=== PATIENT | male | born 1965 | race Caucasian/White ===

== ENCOUNTER 2020-02-12 16:01 | Outpatient (CLI) | payer OTHER, SELFPAY ==
--- NOTE | ~2020-02-12 | MR_ITS ---
EXAMINATION: MR lumbar spine wo con EXAM DATE: 02/12/2020 16:55 INDICATION: Low back pain. Gradually worsening. TECHNIQUE: Multi-sequential, multiplanar MR images of the lumbar spine were obtained without contrast . Sagittal T1, T2, T2 fat saturation images. Axial T2 weighted images. There is no prior study for comparison. FINDINGS: Diffusely heterogeneous bone marrow with some superimposed vertebral body hemangiomata. The re is 3 mm retrolisthesis L1 on L2. Moderate to severe loss of the disc heights at T11-T12, T12-L1, L 1-2, moderate at L2-3 and L5-S1. The conus medullaris terminates at the L1/2 level and has normal sig nal intensity and morphology. Paraspinal soft tissue is unremarkable. Level by level evaluation: T11-12: Sagittal sequence only. There is a mild diffuse disc bulge. Tiny superimposed left central ex trusion, inferior migration. Facet arthropathy: None. Neural foraminal stenosis: Mild bilateral. Central canal stenosis: Mild. T12-L1: There is a mild to moderate diffuse disc bulge. Facet arthropathy: None. Neural foraminal stenosis: No stenosis. Central canal stenosis: No stenosis. L1-L2: There is a moderate diffuse disc bulge. Facet arthropathy: Mild. Neural foraminal stenosis: Mild to moderate bilateral. Central canal stenosis: Mild. L2-L3: There is a moderate diffuse disc bulge. Facet arthropathy: Mild to moderate. Neural foraminal stenosis: Moderate left, mild to moderate right. Central canal stenosis: Mild to moderate. L3-L4: There is a mild to moderate diffuse disc bulge. Facet arthropathy: Mild to moderate. Neural foraminal stenosis: Mild to moderate left, mild right. Central canal stenosis: Mild. L4-L5: There is a moderate diffuse disc bulge. Facet arthropathy: Moderate left, mild to moderate. Neural foraminal stenosis: Moderate left, mild to moderate right. Central canal stenosis: Mild to moderate. L5-S1: There is a moderate diffuse disc bulge. Facet arthropathy: Mild. Neural foraminal stenosis: Moderate bilateral. Central canal stenosis: Mild. IMPRESSION: 1. Overall moderate lumbar spondylosis. Reviewed, dictated and finalized at location B.
== END 2020-02-12 16:02 | disposition home or self-care (01) ==
PROVIDERS: PCP Family Medicine; Visit Provider Physician Assistant
DX: M54.9 Dorsalgia, unspecified (principal); M47.816 Spondylosis without myelopathy or radiculopathy, lumbar region
CPT/HCPCS: 72148

== ENCOUNTER 2020-06-24 06:51 | Outpatient (NON) | payer OTHER, SELFPAY ==
[2020-06-25 00:29] LABS: SARS-CoV-2 RNA PCR Positive
== END 2020-06-24 06:52 ==
LOC: ANHCOVIDDT 07:11
PROVIDERS: PCP Family Medicine; Visit Provider Family Medicine
DX: U07.1 COVID-19 (principal)
CPT/HCPCS: 87635; C9803; U0003

== ENCOUNTER 2020-07-06 20:47 | Emergency (ER) | payer OTHER, SELFPAY ==
--- NOTE | ~2020-07-06 | XR_ITS ---
XR abdomen/kub 1V 07/06/2020 22:00 Indication: Left-sided flank pain Procedure: KUB Comparison: CT dated 07/06/2020 Findings: There is a calcification in the left pelvis corresponding to the stone seen on CT examinati on. There are multiple pelvic phleboliths. Bowel gas pattern is unremarkable. Moderate lower thoracic and lumbar spondylosis with levoscoliosis. Lung bases are unremarkable. Impression: 1: Distal left ureteral stone corresponding to stone identified on correlative CT. Reviewed, dictated and finalized at location A. LIFT MULE OPERATOR Impression: 1: Distal left ureteral stone corresponding to stone identified on correlative CT.
--- NOTE | ~2020-07-06 | CT_ITS ---
EXAMINATION: CT abdomen pelvis wo con DATE: 07/06/2020 21:36 INDICATION: Left flank pain TECHNIQUE: Computed tomography (CT) of the abdomen and pelvis was performed without intravenous contr ast. Automated exposure control and iterative reconstruction technique were employed. Exam dose: 452 .06 mGy-cm total exam DLP. COMPARISON: None. FINDINGS: Nonspecific 4 mm left lower lobe nodule (series 4 image 17). Calcified right lower lobe pulmonary granuloma and calcified right mediastinal nodes consistent with old granulomatous disease occasional splenic calcified granulomas are noted as well. Included lower lung zones are clear of infiltrate or consolidation. Normal heart size. No pericardial or pleural effusion. The liver, gallbladder, spleen, pancreas are otherwise unremarkable. No bile duct or pancreatic duct dilatation. Normal morphology of the adrenal glands. 3 cm right renal cyst. 4 mm distal left ureteral calculus with moderate left hydroureteronephrosis. No other urinary tract c alculus is detected. No evidence of abdominal aortic aneurysm. No intraperitoneal or retroperitoneal or pelvic mass lesion or adenopathy or ascites. Small fat-containing inguinal hernias, left larger than right. Mild left and right colonic diverticulosis; no CT evidence of diverticulitis. Normal appendix. No bowel obstruction, bowel wall thickening, pneumatosis or intraperitoneal free air. Extensive degenerative disc disease of the thoracic and lumbar spine, associated mild retrolisthesis at L1-2 and to a lesser extent L2-3. Degenerative change at the facet joints. No suspicious osteolytic or osteoblastic lesions are noted. IMPRESSION: 4 mm left renal calculus with moderate left hydroureteronephrosis 3 cm right renal cyst Diverticulosis of left and right colon; no CT evidence of diverticulitis Reviewed, dictated and finalized at Location A. Reviewed, dictated and finalized at location A. CONSTRUCTION SUPERVISOR
[2020-07-06 20:49] VITALS: BP 135/88; PULSE 88; RESP 18; TEMP 35.8; O2SAT 100
[2020-07-06 21:07] LABS: Basophils Absolute Auto 0.1 K/mm3 (0.0-0.1); Basophils Percent Auto 0.5 % (0.2-1.2); Eosinophils Absolute Auto 0.3 K/mm3 (0-0.3); Hematocrit 40.2 % (42.0-52.0); Hemoglobin 13.6 g/dL (14.0-18.0); Immature Granulocyte Percent A 0.6 % (0-0.5); Lymphocytes Absolute Auto 3.31 K/mm3 (0.9-3.2); Lymphocytes Percent Auto 19.5 % (18.3-44.2); Mean Corpuscular HGB Conc 33.8 g/dl (32-36); Mean Corpuscular Hemoglobin 29.3 pg (26-34); Mean Corpuscular Volume 86.6 fl (80-100); Mean Platelet Volume 10.2 fl (7.4-10.4); Monocytes Absolute Auto 1.3 K/mm3 (0.1-0.6); Monocytes Percent Auto 7.9 % (2.6-8.5); Neutrophils Absolute Auto 11.8 K/mm3 (1.3-6.7); Neutrophils Percent Auto 69.5 % (45.5-73.1); Platelet Count Result 389 k/mm3 (150-375); Red Blood Count 4.64 M/mm3 (4.6-6.20); White Blood Count 16.9 K/mm3 (4.5-10.0)
--- NOTE | 2020-07-06 21:14 | ED.GENADULT ---
HPI - General Adult General Chief complaint: Urogenital-Male Stated complaint: kidney stone Time Seen by Provider: 07/06/20 21:00 Source: RN notes reviewed History of Present Illness HPI narrative: Patient presents to emergency department from home for left flank pain. Patient states symptoms began 3 hours ago. Pain is located left flank does not radiate associated with nausea vomiting states that he does have a history of kidney stones patient states he tried taking a muscle relaxer at home with no relief. He denies any fevers or chills chest pain shortness of breath or any other symptoms states he did test positive for Covid 2 weeks ago Related Data Allergies Allergy/AdvReac Type Severity Reaction Status Date / Time No Known Allergies Allergy Verified 07/06/20 20:52 Review of Systems Review of Systems: Narrative: Gen.: Denies fevers or chills ENT: Denies congestion Respiratory: Denies shortness of breath or cough CV: Denies chest pain or palpitations GI: See HPI denies burning, urgency, frequency or hematuria Musculoskeletal: Denies back pain or muscle pain Neuro: Denies numbness, tingling, weakness or focal weakness Skin: Denies rash Except as documented, all other systems reviewed and negative [facility] Past Medical History Medical History (Updated 07/06/20 @ 22:32 by Trenton Grimm DO) Patient denies significant medical history Family History Family History Other Family history of multiple sclerosis Social History Social History Smoking status: Never smoker Second hand tobacco smoke exposure: No Alcohol intake: current Gender identity (if verbalized by the patient): Male Exam Narrative: Exam Narrative: APPEARANCE: No acute distress, nontoxic, resting in bed EYES: EOMI HEENT: Normocephalic, atraumatic, OMM RESPIRATORY: No respiratory distress Clear to auscultation bilaterally with no rhonchi wheezing or rales. CARDIOVASCULAR: Regular rate and rhythm without murmurs rubs or gallops. ABDOMINAL: Soft, nontender, nondistended, no rebound or guarding MUSCULOSKELETAl: Moves all extremities. No clubbing, cyanosis or edema. NEURO: Awake and alert. Following commands, speech normal, no focal deficits SKIN:: Warm, dry. No rashes lesions or abrasions PSYCHIATRIC: Normal affect/mood, Course Course Emergency Course: Patient states pain is improved at this time Discussed with patient results of workup and diagnosis. Discussed need for follow-up with primary care, proper use of medication, and reasons to return to the emergency department. Patient understands and agrees to current treatment plan Vital Signs Vital signs: Vital Signs Temperature 96.5 F L 07/06/20 20:49 Pulse Rate 88 07/06/20 20:49 Respiratory Rate 18 07/06/20 20:49 Blood Pressure 135/88 07/06/20 20:49 Pulse Oximetry 100 07/06/20 20:49 Temperature 96.5 F L 07/06/20 20:49 Pulse Rate 88 07/06/20 20:49 Respiratory Rate 18 07/06/20 20:49 Blood Pressure 135/88 07/06/20 20:49 Pulse Oximetry 100 07/06/20 20:49 Medical Decision Making Vital Signs Vital Signs: Vital Signs Temperature 96.5 F L 07/06/20 20:49 Pulse Rate 88 07/06/20 20:49 Respiratory Rate 18 07/06/20 20:49 Blood Pressure 135/88 07/06/20 20:49 Pulse Oximetry 100 07/06/20 20:49 Temperature 96.5 F L 07/06/20 20:49 Pulse Rate 88 07/06/20 20:49 Respiratory Rate 18 07/06/20 20:49 Blood Pressure 135/88 07/06/20 20:49 Pulse Oximetry 100 07/06/20 20:49 Lab Data Result diagrams: 07/06/20 21:00 07/06/20 21:00 Labs: Lab Results 07/06/20 07/06/20 07/06/20 Range/Units 21:00 21:00 21:11 WBC 16.9 H (4.5-10.0) K/mm3 RBC 4.64 (4.6-6.20) M/mm3 Hgb 13.6 L (14.0-18.0) g/dL Hct 40.2 L (42.0-52.0) % MCV 86.6 (80-100) fl MCH 29.3 (26-34) pg MCH
[2020-07-06 21:19] LABS: Anion Gap 14 mmol/L (8-16); Blood Urea Nitrogen 20 mg/dL (9-20); Calcium 9.9 mg/dL (8.4-10.2); Carbon Dioxide 26 mmol/L (22-30); Chloride 101 mmol/L (98-107); Estimated CRCL calculation 98 ml/min; Estimated Glomerular Filt Rate > 60; Glucose 177 mg/dL (75-110); Potassium 3.6 mmol/L (3.4-5.0); Sodium 141 mmol/L (137-145)
[2020-07-06] MEDS: SODIUM CHLORIDE 0.9% IV 1,000 ML 999 ML IV CONT (21:19)
[2020-07-06] MEDS: KETOROLAC 30 MG/ML VIAL (*BKC) IV PUSH (21:19)
[2020-07-06] MEDS: ONDANSETRON INJ 4 MG/2 ML VIAL IV PUSH (21:19)
[2020-07-06 21:20] LABS: Add Urine Microscopic? YES; Appearance Urine Clear (Clear); Bilirubin Urine Negative (Negative); Blood Urine 2+ (Negative); Color Urine Yellow (Yellow); Glucose Urine UA Negative (Negative); Ketones Urine Negative (Negative); Leukocyte Esterase Ur Negative LEU/UL (Negative); Mucus Urine Rare /lpf; Nitrate Urine Negative (Negative); Protein Urine Negative (Negative); RBC Urine 0-2 /hpf (0-2); Specific Grav Ur 1.018 (1.001-1.035); Urobilinogen Urine Negative mg/dL (<2.0); WBC Urine 0-3 /hpf
[2020-07-06] MEDS: TAMSULOSIN HCL 0.4 MG CAPSULE PO (21:57)
[2020-07-06] MEDS: HYDROcodone/acetaminophen (*CRX) 5-325 MG TABLET 1 TAB PO (23:21)
[2020-07-06 23:29] VITALS: BP 145/100; PULSE 82; RESP 16; TEMP 36.8; O2SAT 96
== END 2020-07-06 23:32 | disposition home or self-care (01) ==
PROVIDERS: Emergency Provider Emergency Medicine; PCP Family Medicine
DX: N13.2 Hydronephrosis with renal and ureteral calculous obstruction (principal); Z86.19 Personal history of other infectious and parasitic diseases
CPT/HCPCS: 36415; 74018; 74176; 80048; 81001; 85025; 96361; 96374; 96375; 99284; A9270; J1885; J2405; J7030

== ENCOUNTER 2020-07-08 08:45 | Outpatient (CLI) | payer OTHER, SELFPAY ==
--- NOTE | ~2020-07-08 | XR_ITS ---
EXAMINATION: XR abdomen/kub 1V EXAM DATE: 07/08/2020 09:06 INDICATION: Left ureteral stone. TECHNIQUE: Frontal projection of the upper abdomen, frontal projection lower abdomen/pelvis for inter pretation. Comparison is made to prior examination from 07/06/2020. FINDINGS: Previously seen density suspected to be stone in the distal aspect of the left ureter has probably migrated to the ureterovesicular junction. This finding has been indicated, marked on the ex amination for review, clinical correlation. Nonobstructive bowel gas pattern. There is no organomegal y. IMPRESSION: 1. Probable left UVJ 4 mm stone. Reviewed, dictated and finalized at location B. ING SETTER
== END 2020-07-08 08:46 | disposition home or self-care (01) ==
LOC: ANHIMG 08:54
PROVIDERS: PCP Family Medicine; Visit Provider Urology
DX: N20.1 Calculus of ureter (principal)
CPT/HCPCS: 74018

== ENCOUNTER 2020-07-08 11:22 | Day surgery (SDC) | payer OTHER, SELFPAY ==
[2020-07-08] VITALS (7 sets, daily range): BP systolic 87–160; BP diastolic 55–93; PULSE 84–98; RESP 12–20; TEMP 36.4–36.5; O2SAT 95–100; BMI 31.2
--- NOTE | ~2020-07-08 | XR_ITS ---
EXAMINATION: XR fluoroscopy no charge DATE: 07/08/2020 16:57 INDICATION: Left ureteral stone. TECHNIQUE: 4 intraoperative fluoroscopic views of the abdomen and pelvis were obtained. I was not pre sent. Fluoroscopy exposure time was 5 seconds. COMPARISON: Abdomen radiographs 07/08/2020 FINDINGS: Images demonstrate a wire in the left ureter. There is no visible urolithiasis. IMPRESSION: 1. No visible urolithiasis. Reviewed, dictated and finalized at location A. IGRAPH OPERATOR IMPRESSION: 1. No visible urolithiasis.
--- NOTE | 2020-07-08 13:33 | WPDANESEPPF ---
Anes - Initial Pre Proc Eval Procedure: Operation Date: 07/08/20 16:00 Proposed Procedures p Cystoscopy, Left Ureteroscopy with Stone Extraction - Chase Jamison MD Date/Time: 07/08/20 13:33 Surgeon: Chase Jamison MD Pre Op Diagnosis: left ureteral stone Patient Data Age: 55 Gender: M Height: 1.83 m Weight: 104.5 kg Allergies Allergy/AdvReac Type Severity Reaction Status Date / Time No Known Allergies Allergy Verified 07/08/20 14:27 Home Medications Medication Instructions Recorded Confirmed Type metoprolol succinate 25 mg 25 mg PO DAILY #90 tablet 01/15/20 07/08/20 Rx tablet,extended release 24 hr lisinopril 20 1 tablet PO DAILY #90 tablet 03/07/20 07/08/20 Rx mg-hydrochlorothiazide 12.5 mg tablet hydrocodone-acetaminophen 1 tablet PO Q4H PRN #12 tablet 07/06/20 07/08/20 Rx ibuprofen [IBU] 600 mg PO Q6H PRN #20 tablet 07/06/20 07/08/20 Rx ondansetron 4 mg PO Q6H PRN #10 tablet 07/06/20 07/08/20 Rx tamsulosin [Flomax] 0.4 mg PO DAILY #5 cap 07/06/20 07/08/20 Rx geriatric multivitamin-min 1 tablet QAM 07/08/20 07/08/20 History [One-A-Day 50 Plus] Patient hx anesthesia problems: none Family hx anesthesia problems: none PMFSH Past Medical History Medical History (Updated 07/08/20 @ 13:33 by Easton Rosa DO) Hypertension GREGG (obstructive sleep apnea) no CPAP Patient denies significant medical history Renal stones Family History Family History Other Family history of multiple sclerosis Social History Social History Smoking status: Never smoker Second hand tobacco smoke exposure: No Alcohol intake: current Alcohol use details: STATES MAYBE 1-2 DRINKS LAMAR OTEHR WEEK Substance use: never Living arrangements: with family Gender identity (if verbalized by the patient): Male Spiritual care concerns: No Anes - Eval Final PreProcedure Day of Procedure 07/08/20 13:33 Patient weight: obese Heart: regular rate and rhythm Lungs: clear to auscultation and normal air movement Airway: Mallampati scale class III Neurological: alert and oriented Last oral intake: >/= 8 hours ASA classification: III Emergent: no Anesthetic plan: proceed Anesthesia type and monitoring: general LMA and standard monitoring Informed Consent: The patient's anesthetic plan and its attendant risks and benefits were discussed with the patient/family/POA. Questions were solicited and answers provided to the satisfaction of the patient/family/POA.
--- NOTE | 2020-07-08 14:12 | ECG_ITS ---
Measurements Intervals [place] Rate: 95 P: 48 TN: 165 QRS: 57 QRSD: 102 T: 19 QT: 332 QTc: 418 Interpretive Statements SINUS RHYTHM NORMAL ECG Electronically Signed On 07-08-2020 14:28:29 BRIDGE MANAGER by Westley Antonio D.O.
[2020-07-08] MEDS: LACTATED RINGERS 1,000 ML 30 ML IV CONT (14:33)
[2020-07-08] MEDS: fentaNYL CITRATE INJ (*CRX) 100 MCG/2 ML VIAL 25 MCG IV PUSH (15:07)
--- NOTE | 2020-07-08 15:13 | WPDHPUPDATE1 ---
History and Physical Update Update Date/Time: 07/08/20 15:13 History and Physical has been reviewed, including an updated exam of the patient. There are NO changes in the patient's condition. Risks, benefits, and alternatives have been discussed and questions answered. Patient agrees to proceed with procedure.
[2020-07-08] MEDS: ceFAZolin 2 GM/D5W 50 ML 2 GM/50 ML BAG IVPB (16:36)
[2020-07-08] MEDS: LIDOCAINE HCL 2% GEL UROJET 10 ML PKG MUCOUS MEM (16:50)
--- NOTE | 2020-07-08 16:56 | P.OP_ITS ---
Procedure Note - Detailed Date of procedure: 07/08/20 Pre-op diagnosis: left ureteral stone Post-op diagnosis: same Procedure performed: Cystoscopy, left ureteroscopy with stone extraction Description of procedure: The patient was brought to the operative suite where he is prepped and draped in a routine sterile fashion while in the dorsal lithotomy position after the uneventful induction of a general LMA anesthetic. A 19F rigid cystoscope was placed in the bladder. There are no urethral strictures. His prostatic urethra measures, approximately, 1.5cm with no median lobe enlargement. The bladder mucosa was endoscopically normal without hyperemia or neoplasm. There was a single, orthotopic ureteral orifice bilaterally. A 0.035 glidewire was advanced into the renal pelvis under fluoroscopy. The distal ureter was dilated with an 8F/10F ureteral dilator. Ureteroscopy was undertaken with a short, tapered, semi-rigid ureteroscope and the stone was extracted with ease using a 1.9F Ivana disposable stone basket. Due to the e ase of this manipulation I opted not to place a ureteral stent. The patient's bladder was emptied and was taken to the recovery room having tolerated this procedure well. Implants: None Anesthesia: GLMA Surgeon: Chase Jamison MD Estimated blood loss (mL): 0 Drains: No Packing: No Pathology: yes (Left ureteral stone) Complications: No immediate complications Condition: stable Disposition: PACU
[2020-07-08] MEDS: KETOROLAC 30 MG/ML VIAL (*BKC) IV PUSH (16:58)
== END 2020-07-08 18:30 | disposition home or self-care (01) ==
PROVIDERS: PCP Family Medicine; Visit Provider Urology
PROC: (CPT 52352; principal; 2020-07-08 16:00)
DX: N20.1 Calculus of ureter (principal); I10 Essential (primary) hypertension; G47.33 Obstructive sleep apnea (adult) (pediatric); E66.9 Obesity, unspecified; Z68.30 Body mass index [BMI] 30.0-30.9, adult
CPT/HCPCS: 52352; 82365; 88300; 93005; A9270; C1769; J0690; J1885; J2250; J3010; J7120

== ENCOUNTER 2020-07-09 10:37 | Day surgery (SDC) | payer OTHER, SELFPAY ==
[2020-07-09] VITALS (25 sets, daily range): BP systolic 113–169; BP diastolic 83–109; PULSE 68–104; RESP 2–24; TEMP 36.3–37.1; O2SAT 93–100; BMI 32.5
--- NOTE | ~2020-07-09 | XR_ITS ---
EXAMINATION: XR retrograde pyelo w/stent LT DATE: 07/09/2020 17:40 INDICATION: Left ureteral stent placement TECHNIQUE: 37 fluoroscopic spot images of the abdomen and pelvis were obtained during procedure perfo rmed by Dr. Ledbetter. Radiologist was not present for the imaging or procedure. The amount of fluor oscopy time used during this procedure was 0.7 minutes. COMPARISON: CT dated 07/09/2020 FINDINGS: Images demonstrate retrograde contrast injections into the left ureter with moderate left hydroureter onephrosis. There are small bowel lucent filling defects within the left ureter which appear to wynne e in size and morphology suggesting gas bubbles. Final images demonstrate placement of a left interna l ureteral stent with loops formed over the bladder and left renal pelvis. IMPRESSION: 1. Fluoroscopy utilized during placement of a left internal ureteral stent which is in expected posit ion. See procedure note for further detail. Reviewed, dictated and finalized at location H. HANDLER EQUIPMENT OPERATOR IMPRESSION: 1. Fluoroscopy utilized during placement of a left internal ureteral stent whic h is in expected position. See procedure note for further detail.
--- NOTE | ~2020-07-09 | CT_ITS ---
EXAMINATION: CT abdomen pelvis wo con DATE: 07/09/2020 16:18 INDICATION: Left flank pain. Recent ureteral stone extraction. TECHNIQUE: Computed tomography (CT) of the abdomen and pelvis was performed without intravenous contr ast. Automated exposure control and iterative reconstruction technique were employed. The dose-length product was 466.69 mGy-cm. COMPARISON: None FINDINGS: Lung bases are clear. Heart size is normal. No pericardial or pleural effusion. Calcified paraesophag eal lymph nodes and a few splenic calcific calcification consistent with old granulomatous disease. D iffuse hepatic steatosis. Gallbladder, pancreas and bilateral adrenal glands are normal. 2.8 cm right renal cyst. No evident urolithiasis. The stone previously seen at the distalmost left ur eter is no longer visualized. The distalmost left ureter left ureterovesical junction. Slightly thick ened and with slightly increased attenuation relative to the distal right ureter and ureterovesicular junction which could represent residual inflammation or potentially small amount of clot related to the recently passed stone. This likely still partially obstructing with residual moderate left hydron ephrosis. There is increased inflammatory stranding along the left ureter at about the left kidney wh ich could be related to the hydronephrosis although superimposed ascending urinary tract infection ca nnot be excluded. There are few scattered colonic diverticula without adjacent inflammatory change to suggest diverticu litis. Small bowel and appendix are normal. Bladder is normal. Small fat-containing left inguinal her concha. No free intraperitoneal gas or fluid. No pathologically enlarged abdominal or pelvic lymphadenop athy. Mild thoracolumbar levocurvature with severe spondylosis. IMPRESSION: 1. Interval passage of a prior stone near the left ureterovesicular junction. There is persistent mod erate left hydronephrosis with thickening and subtle increased density at the distalmost left ureter/ ureterovesicular junction suggesting at least partial obstruction related to residual inflammation or potentially small amount of clot. Increased stranding about the left kidney also be due to superimpo sed ascending urinary tract infection would correlate with urinalysis. 2. Diffuse hepatic steatosis. Reviewed, dictated and finalized at [facility] H. S ROOM SUPERVISOR IMPRESSION: 1. Interval passage of a prior stone near the left ureterovesicular junction. T here is persistent moderate left hydronephrosis with thickening and subtle incr eased density at the distalmost left ureter/ureterovesicular junction suggestin g at least partial obstruction related to residual inflammation or potentially small amount of clot. Increased stranding about the left kidney also be due to superimposed ascending urinary tract infection would correlate with urinalysis. 2. Diffuse hepatic steatosis.
[2020-07-09 10:59] LABS: Basophils Percent Auto 0.2 % (0.2-1.2); Eosinophils Absolute Auto 0.1 K/mm3 (0-0.3); Eosinophils Percent Auto 0.4 % (0-4.4); Hematocrit 36.4 % (42.0-52.0); Hemoglobin 12.4 g/dL (14.0-18.0); Immature Granulocyte Absolute 0.07 K/mm3 (0.00-0.031); Immature Granulocyte Percent A 0.4 % (0-0.5); Lymphocytes Absolute Auto 1.14 K/mm3 (0.9-3.2); Lymphocytes Percent Auto 7.1 % (18.3-44.2); Mean Corpuscular HGB Conc 34.1 g/dl (32-36); Mean Corpuscular Hemoglobin 29.6 pg (26-34); Mean Corpuscular Volume 86.9 fl (80-100); Monocytes Absolute Auto 1.4 K/mm3 (0.1-0.6); Monocytes Percent Auto 8.8 % (2.6-8.5); Neutrophils Absolute Auto 13.4 K/mm3 (1.3-6.7); Neutrophils Percent Auto 83.1 % (45.5-73.1); Platelet Count Result 287 k/mm3 (150-375); Red Blood Count 4.19 M/mm3 (4.6-6.20); Red Cell Distribution Width 14.2 % (11.5-14.5); White Blood Count 16.1 K/mm3 (4.5-10.0)
[2020-07-09 11:12] LABS: Potassium 3.5 mmol/L (3.4-5.0)
[2020-07-09 11:16] LABS: Alanine Aminotransferase 27 U/L (4-50); Albumin Level 4.1 g/dL (3.5-5.1); Alkaline Phosphatase 84 U/L (38-126); Anion Gap 11 mmol/L (8-16); Aspartate Amino Transferase 37 U/L (17-59); Bilirubin,Total 0.5 mg/dL (0.2-1.3); Blood Urea Nitrogen 22 mg/dL (9-20); Calcium 9.2 mg/dL (8.4-10.2); Carbon Dioxide 27 mmol/L (22-30); Chloride 102 mmol/L (98-107); Estimated CRCL calculation 54 ml/min; Estimated Glomerular Filt Rate 42; Glucose 128 mg/dL (75-110); Lipase 23 U/L (23-300); Sodium 140 mmol/L (137-145)
--- NOTE | 2020-07-09 11:27 | ED.ABDPAIN ---
HPI - Abdominal Pain General Chief Complaint: Abdominal Pain <ALINA Granados Last Filed: 07/09/20 16:57> Stated Complaint: Post surgical pain - kidney stone <ALINA Granados Last Filed: 07/09/20 16:57> Time Seen by Provider: 07/09/20 10:58 <ALINA Granados Last Filed: 07/09/20 16:57> Source: patient <ALINA Granados Last Filed: 07/09/20 16:57> Mode of arrival: ambulatory <ALINA Granados Last Filed: 07/09/20 16:57> Limitations: no limitations <ALINA Granados Last Filed: 07/09/20 16:57> History of Present Illness HPI narrative: This is a 55-year-old male that presents to the emergency department for worsening left flank pain since last night. Reports the pain is sharp in nature and constant. Reports he was diagnosed with a ureteral stone on Tuesday. Reports he went to see Dr. Jamison yesterday and had a cystoscopy with stone extraction. Reports his pain was controlled initially, but then last night his pain started to worsen again. Last night he noted bright red blood in his urine with some blood clots. Today he still notes some pink in his urine. Initially was having difficulty urinating, but now is able to urinate with mild discomfort. He has been taking ibuprofen for pain with little relief. He did take a Minerva this morning which helped some. Denies fever, nausea, or vomiting. <ALINA Granados Last Filed: 07/09/20 16:57> Related Data Home Medications: Home Medications Medication Instructions Recorded Confirmed geriatric multivitamin-min 1 tablet QAM 07/08/20 07/08/20 <ALINA Granados Last Filed: 07/09/20 16:57> Allergies/Adverse Reactions: Allergies Allergy/AdvReac Type Severity Reaction Status Date / Time No Known Allergies Allergy Verified 07/08/20 14:27 <ALINA Granados Last Filed: 07/09/20 16:57> Review of Systems Review of Systems: Narrative: CONSTITUTIONAL: Denies fever GASTROINTESTINAL: Reports abdominal pain. Denies nausea, vomiting GENITOURINARY: Reports dysuria and hematuria. MUSCULOSKELETAL: Reports flank pain <ALINA Granados Last Filed: 07/09/20 16:57> All systems reviewed & are unremarkable except as noted in HPI and below <Linda Ayon PA-C - Last Filed: 07/09/20 16:57> [facility] Past Medical History Medical History: Medical History Hypertension Obesity GREGG (obstructive sleep apnea) no CPAP Patient denies significant medical history Renal stones <ALINA Granados Last Filed: 07/09/20 16:57> Family History Family History: Family History Other Family history of multiple sclerosis <ALINA Granados Last Filed: 07/09/20 16:57> Social History Social History: Social History Smoking status: Never smoker Second hand tobacco smoke exposure: No Alcohol intake: current Substance use: never Gender identity (if verbalized by the patient): Male Spiritual care concerns: No <ALINA Granados Last Filed: 07/09/20 16:57> Exam Narrative: Exam Narrative: GENERAL: Well-appearing, well-nourished, and in no acute distress. HEAD: Normocephalic, atraumatic. EYES: EOMI. CHEST: Clear to auscultation. No respiratory distress. No wheezes rales or rhonchi HEART: Regular rate and rhythm. No murmur heard. Normal peripheral pulses. ABDOMEN: Soft, nondistended, normal active bowel sounds. Mild tenderness to palpation throughout the left side of the abdomen, without guarding. No CVA tenderness EXTREMITIES: Normal range of motion. No edema. SKIN: Warm, dry, no rash. NEURO: No focal deficits. Alert and oriented x3. PSYCH: Normal mood and affect <ALINA Granados Last Filed: 11/25/20 16:57> Course MEDICAL OFFICE COORDINATOR/PA Physician Supervision Patient
[2020-07-09] MEDS: ONDANSETRON INJ 4 MG/2 ML VIAL IV PUSH (11:28)
[2020-07-09] MEDS: SODIUM CHLORIDE 0.9% IV 1,000 ML 999 ML IV CONT (11:28)
[2020-07-09] MEDS: MORPHINE SULFATE (*CRX) 4 MG/ML INJ IV PUSH ×2 (11:28→16:10)
[2020-07-09 11:35] LABS: Lactic Acid Reflex 0.7 mmol/L (0.7-2.1)
[2020-07-09 13:26] LABS: Add Urine Microscopic? YES; Appearance Urine Clear (Clear); Bilirubin Urine Negative (Negative); Blood Urine 3+ (Negative); Color Urine Yellow (Yellow); Glucose Urine UA Negative (Negative); Ketones Urine 1+ mg/dL (Negative); Leukocyte Esterase Ur Negative LEU/UL (Negative); Mucus Urine Rare /lpf; Nitrate Urine Negative (Negative); Protein Urine 1+ mg/dL (Negative); RBC Urine >75 /hpf (0-2); Specific Grav Ur 1.018 (1.001-1.035); Squamous Epithelial Cell Urine Rare /hpf (Few); Urobilinogen Urine Negative mg/dL (<2.0); WBC Urine 16-20 /hpf
--- NOTE | 2020-07-09 16:29 | WPDANESEPPF ---
Anes - Initial Pre Proc Eval Procedure: Operation Date: 07/09/20 18:00 Proposed Procedures p Cystoscopy, Left Stent Placement - Fan Ledbetter MD Date/Time: 07/09/20 16:29 Pre Op Diagnosis: Post surgical pain - kidney stone Patient Data Age: 55 Gender: M Height: 1.83 m Weight: 104 kg Last Vital Signs Temp 37.1 C 07/09/20 10:49 Pulse 95 07/09/20 11:22 Resp 12 07/09/20 11:22 BP 163/102 H 07/09/20 11:22 Pulse Ox 93 07/09/20 11:22 Allergies Allergy/AdvReac Type Severity Reaction Status Date / Time No Known Allergies Allergy Verified 07/08/20 14:27 Home Medications Medication Instructions Recorded Confirmed Type metoprolol succinate 25 mg 25 mg PO DAILY #90 tablet 01/15/20 07/08/20 Rx tablet,extended release 24 hr lisinopril 20 1 tablet PO DAILY #90 tablet 03/07/20 07/08/20 Rx mg-hydrochlorothiazide 12.5 mg tablet hydrocodone-acetaminophen 1 tablet PO Q4H PRN #12 tablet 07/06/20 07/08/20 Rx ibuprofen [IBU] 600 mg PO Q6H PRN #20 tablet 07/06/20 07/08/20 Rx ondansetron 4 mg PO Q6H PRN #10 tablet 07/06/20 07/08/20 Rx tamsulosin [Flomax] 0.4 mg PO DAILY #5 cap 07/06/20 07/08/20 Rx geriatric multivitamin-min 1 tablet QAM 07/08/20 07/08/20 History Laboratory Tests 07/09/20 07/09/20 07/09/20 10:53 10:53 10:53 WBC 16.1 K/mm3 H K/mm3 (4.5-10.0) RBC 4.19 M/mm3 L M/mm3 (4.6-6.20) Hgb 12.4 g/dL L g/dL (14.0-18.0) Hct 36.4 % L % (42.0-52.0) MCV 86.9 fl fl (80-100) MCH 29.6 pg pg (26-34) MCHC 34.1 g/dl g/dl (32-36) RDW 14.2 % % (11.5-14.5) Plt Count 287 k/mm3 k/mm3 (150-375) MPV 10.0 fl fl (7.4-10.4) Immature Gran % (Auto) 0.4 % % (0-0.5) Neut % (Auto) 83.1 % H % (45.5-73.1) Lymph % (Auto) 7.1 % L % (18.3-44.2) [place] % (Auto) 8.8 % H % (2.6-8.5) Eos % (Auto) 0.4 % % (0-4.4) Baso % (Auto) 0.2 % % (0.2-1.2) Lymph # (Auto) 1.14 K/mm3 K/mm3 (0.9-3.2) [place] # (Auto) 1.4 K/mm3 H K/mm3 (0.1-0.6) Eos # (Auto) 0.1 K/mm3 K/mm3 (0-0.3) Baso # (Auto) 0.0 K/mm3 K/mm3 (0.0-0.1) Abs Immat Gran (auto) 0.07 K/mm3 H K/mm3 (0.00-0.031) Absolute Neuts (auto) 13.4 K/mm3 H K/mm3 (1.3-6.7) Absolute Nucleated RBC 0.0 K/mm3 K/mm3 (0.0-0.012) Nucleated RBC % 0.0 % % (0.0-0.2) Sodium 140 mmol/L mmol/L (137-145) Potassium 3.5 mmol/L mmol/L (3.4-5.0) Chloride 102 mmol/L mmol/L (98-107) Carbon Dioxide 27 mmol/L mmol/L (22-30) Anion Gap 11 mmol/L mmol/L (8-16) BUN 22 mg/dL H mg/dL (9-20) Creatinine 1.70 mg/dL H mg/dL (0.7-1.3) Estim Creat Clear Calc 54 ml/min ml/min Estimated GFR 42 L (59 - ) Glucose 128 mg/dL H mg/dL (75-110) Lactic Acid Calcium 9.2 mg/dL mg/dL (8.4-10.2) Total Bilirubin 0.5 mg/dL mg/dL (0.2-1.3) AST 37 U/L U/L (17-59) ALT 27 U/L U/L (4-50) Alkaline Phosphatase 84 U/L U/L (38-126) C-Reactive Protein 15.0 mg/dL H mg/dL (<1.0) Total Protein 8.0 g/dL g/dL (6.3-8.2) Albumin 4.1 g/dL g/dL (3.5-5.1) Lipase 23 U/L U/L (23-300) Urine Color Urine Appearance Urine pH Ur Specific [place] Urine Protein Urine Glucose (UA) Urine Ketones Ur Blood (Man) Urine Nitrate Urine Bilirubin Urine Urobilinogen Leukocyte Esterase Rfl Urine RBC Urine WBC Ur Squamous Epith Cells Urine Mucus 07/09/20 07/09/20 11:20 12:48 WBC RBC Hgb Hct MCV MCH MCHC
[2020-07-09] MEDS: SODIUM CHLORIDE 0.9% IV 1,000 ML 150 ML IV CONT (16:30)
--- NOTE | 2020-07-09 16:45 | WPDURCON ---
Assessment and Plan Assessment and plan (1) Hydronephrosis, left: Code(s): N13.30 - Unspecified hydronephrosis Status: Acute Assessment and Plan: No residual obstructive stone present, however a small clot in the distal left ureter and moderate hydronephrosis from edema in the distal ureter is present. Keep NPO. Obtain Consent Go to the OR tonight for: Cystoscopy, left ureteroscsopy with stent placement, left retrograde pyelogram. (2) Left flank pain: Code(s): R10.9 - Unspecified abdominal pain Status: Acute (3) KRISTIN (acute kidney injury): Code(s): N17.9 - Acute kidney failure, unspecified Status: Acute Assessment and Plan: Likely in response to surgery yesterday and hydronephrosis, will likely resolve once stent is placed. Urology Consult Note HPI Date Seen: 07/09/20 Primary Care Provider: You Last MD Consult Narrative Narrative: Charles Mccabe is a 55 year old male who presents to the ER with new onset of left flank pain last night following a Cystoscopy, left ureteroscopy with stone extraction, left retrograde pyelogram yesterday with Dr. Jamison. He also developed nausea and vomiting. He denies gross hematuria, dysuria, fever or chills. His WBC is elevated at 16.1 and creatinine is 1.[address] scan shows: Interval passage of a prior stone near the left ureterovesicular junction. There is persistent moderate left hydronephrosis with thickening and subtle increased density at the distalmost left ureter/ureterovesicular junction suggesting at least partial obstruction related to residual inflammation or potentially small amount of clot. Increased stranding about the left kidney also be due to superimposed ascending urinary tract infection would correlate with urinalysis. Review of Systems Cardiovascular: Cardiovascular: Denies chest pain Respiratory: Respiratory: Reports no additional respiratory complaints Gastrointestinal: Gastrointestinal: Reports abdominal pain, Reports nausea and Reports vomiting Genitourinary: Genitourinary: Denies hematuria, Denies dysuria, Reports flank pain and Denies urinary frequency PMF Past Medical History Medical History Hypertension Obesity GREGG (obstructive sleep apnea) no CPAP Patient denies significant medical history Renal stones Family History Family History Other Family history of multiple sclerosis Social History Social History Smoking status: Never smoker Second hand tobacco smoke exposure: No Alcohol intake: current Substance use: never Gender identity (if verbalized by the patient): Male Spiritual care concerns: No Meds Home Medications and Allergies Home Medications Medication Instructions Recorded Confirmed Type metoprolol succinate 25 mg 25 mg PO DAILY #90 tablet 01/15/20 07/08/20 Rx tablet,extended release 24 hr lisinopril 20 1 tablet PO DAILY #90 tablet 03/07/20 07/08/20 Rx mg-hydrochlorothiazide 12.5 mg tablet hydrocodone-acetaminophen 1 tablet PO Q4H PRN #12 tablet 07/06/20 07/08/20 Rx ibuprofen [IBU] 600 mg PO Q6H PRN #20 tablet 07/06/20 07/08/20 Rx ondansetron 4 mg PO Q6H PRN #10 tablet 07/06/20 07/08/20 Rx tamsulosin [Flomax] 0.4 mg PO DAILY #5 cap 07/06/20 07/08/20 Rx geriatric multivitamin-min 1 tablet QAM 07/08/20 07/08/20 History Allergies Allergy/AdvReac Type Severity Reaction Status Date / Time No Known Allergies Allergy Verified 07/08/20 14:27 Vital Signs Vital Signs - 24 hr 07/09/20 10:49 07/09/20 11:22 07/09/20 13:44 Temperature 98.8 F Pulse Rate 88 95 84 Respiratory Rate 21 H 12 12 Blood Pressure 163/97 H 163/102 H Pulse Oximetry 97 93 98 07/09/20 13:45 07/09/20 13:46 07/09/20 14:00 Temperature Pulse Rate 76 85 98 Respiratory Rate 11 L 8 L 13 Bloo
--- NOTE | 2020-07-09 17:03 | WPDHPUPDATE1 ---
History and Physical Update Update Date/Time: 07/09/20 17:03 History and Physical has been reviewed, including an updated exam of the patient. There are NO changes in the patient's condition. Risks, benefits, and alternatives have been discussed and questions answered. Patient agrees to proceed with procedure.
[2020-07-09] MEDS: LIDOCAINE HCL 2% GEL UROJET 10 ML PKG MUCOUS MEM (17:10)
--- NOTE | 2020-07-09 17:34 | SUR.OPER ---
EBL:5cc
--- NOTE | 2020-07-09 17:36 | SUR.PREOP ---
Dr Arreola aware of last dose of metoprolol no new orders, patient arrived with NS infusing per anesthesia ok to go to OR
[2020-07-09] MEDS: LACTATED RINGERS 1,000 ML 30 ML IV CONT (17:41)
--- NOTE | 2020-07-09 17:41 | PM.PROC ---
Procedure Note - Detailed Date of procedure: 07/09/20 Pre-op diagnosis: Post surgical pain - kidney stone Procedure performed: Left hydronephrosis due to ureteral edema Description of procedure: Informed consent was obtained. Patient taken the operating room. He is given preoperative IV antibiotics in the emergency department. Sutures anesthesia he was placed in the dorsal lithotomy position. A 22 F cystoscope was advanced there was some constriction at the membranous urethra therefore a 19 F scope was inserted easily. Inspection of the bladder revealed blood and edema of the left ureterovesical junction, otherwise normal bladder. We then advanced a wire and performed a retrograde pyelogram that showed moderate to severe left hydronephrosis. We then removed the scope and over the wire easily advanced a 22 F scope. We then placed a 6 F variable length stent with a curl in renal pelvis and curl in the bladder. The bladder was emptied. Lidocaine instilled the patient. Says he was awakened and taken to the recovery stable condition. Anesthesia: GLMA Surgeon: Fan Ledbetter MD Drains: No Packing: No Pathology: none sent Complications: No immediate complications Condition: stable Disposition: PACU
[2020-07-09] MEDS: oxyCODONE HCL (*CRX) 5 MG TAB IR PO (18:52)
== END 2020-07-09 18:55 | disposition home or self-care (01) ==
LOC: ANHED 16:46 → ANHSURGERY 16:51
PROVIDERS: Emergency Medicine; Physician Assistant; Emergency Provider Emergency Medicine; PCP Family Medicine; Visit Provider Urology
PROC: (CPT 52352; principal; 2020-07-09 18:00)
DX: N13.30 Unspecified hydronephrosis (principal); Z87.442 Personal history of urinary calculi; I10 Essential (primary) hypertension; G47.33 Obstructive sleep apnea (adult) (pediatric); E66.9 Obesity, unspecified; Z68.32 Body mass index [BMI] 32.0-32.9, adult
CPT/HCPCS: 52332; 36415; 74176; 74420; 80053; 81001; 83605; 83690; 85025; 86140; 87086; 96365; 96375; 96376; 99285; A9270; C1758; C1769; C1887; C2617; J0131; J0696; J2250; J2270; J2405; J3010; J7030; J7120; Q9966

== ENCOUNTER 2020-07-14 11:57 | Outpatient (CLI) | payer OTHER, SELFPAY ==
--- NOTE | ~2020-07-14 | XR_ITS ---
XR abdomen/kub 1V 07/14/2020 12:10 Indication: Replacement of left ureteral stent Procedure: KUB Comparison: 07/08/2020 Findings: Bowel gas pattern is nonobstructive. Left internal ureteral stent in expected position. The re are pelvic phleboliths. Lung bases unremarkable. No acute osseous abnormality. Impression: 1: No acute abdominal abnormality. Reviewed, dictated and finalized at location B. ING CREW FOREMAN Impression: 1: No acute abdominal abnormality.
== END 2020-07-14 11:58 | disposition home or self-care (01) ==
LOC: ANHIMG 12:00
PROVIDERS: PCP Family Medicine; Visit Provider Urology
DX: N20.1 Calculus of ureter (principal)
CPT/HCPCS: 74018

== ENCOUNTER → 2021-07-23 13:08 | Outpatient (CLI) | payer OTHER, SELFPAY ==
--- NOTE | ~2021-07-23 | XR_ITS ---
EXAMINATION: XR hand BI arthritis min 3V DATE: 07/23/2021 13:44 INDICATION: Bilateral hand pain TECHNIQUE: Posteroanterior, lateral, and oblique views of the left and of the right hands as well as a ballcatchers view of both hands were obtained. COMPARISON: None. FINDINGS: Right hand: There is advanced osteoarthritis of the first carpometacarpal joint. Mild osteoarthritis is present in the triscaphe joint and multiple interphalangeal joints. There is no fracture. Bone ali gnment is normal. The soft tissues are unremarkable. Left hand: There is advanced osteoarthritis of the first carpometacarpal joint. Mild osteoarthritis i s present in the triscaphe joint and multiple interphalangeal joints. There is no fracture. Bone alig nment is normal. The soft tissues are unremarkable. IMPRESSION: 1. Bilateral osteoarthritis, worst at the first metacarpophalangeal joints. Reviewed, dictated and finalized at location F. NDMAN/LINEMAN
== END ==
PROVIDERS: PCP Family Medicine; Visit Provider Physician Assistant
DX: M79.643 Pain in unspecified hand (principal); M19.042 Primary osteoarthritis, left hand; M19.041 Primary osteoarthritis, right hand
CPT/HCPCS: 73130

== ENCOUNTER 2021-08-04 10:12 | Outpatient (CLI) | payer OTHER, SELFPAY ==
--- NOTE | 2021-08-04 11:00 | NEURO_ITS ---
Impression: # Complains of whole left hand numbness when driving. # Left Carpal Tunnel Syndrome. # No ulnar neuropathy. # Normal needle/EMG exam. # Patient does have ulnar to median cross innervation. Nerve Conduction Studies Anti Sensory Summary Table Stim Site NR Peak (ms) P-T Amp (?V) Site1 Site2 Delta-P (ms) Dist (cm) Giovanny (m/s) Left Median Anti Sensory (2-3nd Digit) Wrist 3.9 26.9 Wrist 2-3nd Digit 3.9 14.0 36 Wrist 4.1 23.8 Wrist 2-3nd Digit 3.9 14.0 36 Right Median Anti Sensory (2-3nd Digit) Wrist 3.7 21.8 Wrist 2-3nd Digit 3.7 14.0 38 Wrist 3.9 28.2 Wrist 2-3nd Digit 3.7 14.0 38 Left Radial Anti Sensory (Base 1st Digit) Wrist 2.5 14.3 Wrist Base 1st Digit 2.5 0.0 Right Radial Anti Sensory (Base 1st Digit) Wrist 2.6 4.7 Wrist Base 1st Digit 2.6 0.0 Left Ulnar Anti Sensory (5th Digit) Wrist 2.9 22.5 Wrist 5th Digit 2.9 14.0 48 Right Ulnar Anti Sensory (5th Digit) Wrist 2.8 16.3 Wrist 5th Digit 2.8 14.0 50 Motor Summary Table Stim Site NR Onset (ms) O-P Amp (mV) Site1 Site2 Delta-0 (ms) Dist (cm) Giovanny (m/s) Left Median Motor (Abd Poll Brev) Wrist 4.2 0.5 Elbow Wrist 4.9 29.0 59 Elbow 9.1 0.7 Right Median Motor (Abd Poll Brev) Wrist 3.5 0.6 Elbow Wrist 4.9 29.0 59 Elbow 9.1 0.7 Left Ulnar Motor (Abd Dig Minimi) Wrist 2.7 6.1 A Elbow Wrist 5.2 31.0 60 A Elbow 7.9 4.7 Right Ulnar Motor (Abd Dig Minimi) Wrist 2.8 5.9 A Elbow Wrist 5.1 29.0 57 A Elbow 7.9 4.7 F Wave Studies NR F-Lat (ms) L-R F-Lat (ms) Left Median (Mrkrs) (Abd Poll Brev) 28.27 1.61 Right Median (Mrkrs) (Abd Poll Brev) 29.89 1.61 Left Ulnar (Mrkrs) (Abd Dig Min) 29.38 0.46 Right Ulnar (Mrkrs) (Abd Dig Min) 29.83 0.46 EMG Side Muscle Nerve Root Ins Act Fibs Amp Dur Recrt Comment Right 1stDorInt Ulnar C8-T1 Nml Nml Nml Nml Nml Right Ext Indicis Radial (Post Int) C7-8 Nml Nml Nml Nml Nml Right Ext Digitorum Radial (Post Int) C7-8 Nml Nml Nml Nml Nml Right BrachioRad Radial C5-6 Nml Nml Nml Nml Nml Right PronatorTeres Median C6-7 Nml Nml Nml Nml Nml Right Abd Poll Brev Median C8-T1 Nml Nml Nml Nml Nml Left 1stDorInt Ulnar C8-T1 Nml Nml Nml Nml Nml Left Ext Indicis Radial (Post Int) C7-8 Nml Nml Nml Nml Nml Left Ext Digitorum Radial (Post Int) C7-8 Nml Nml Nml Nml Nml Left BrachioRad Radial C5-6 Nml Nml Nml Nml Nml Left PronatorTeres Median C6-7 Nml Nml Nml Nml Nml Left Abd Poll Brev Median C8-T1 Nml Nml Nml Nml Nml MTDD
== END 2021-08-04 10:13 | disposition home or self-care (01) ==
LOC: ANHNEURO 10:16
PROVIDERS: PCP Family Medicine; Visit Provider Physician Assistant
DX: M79.643 Pain in unspecified hand (principal); G56.02 Carpal tunnel syndrome, left upper limb
CPT/HCPCS: 95886; 95911

== ENCOUNTER 2023-10-10 14:30 | Outpatient (CLI) | payer OTHER, SELFPAY ==
[2023-10-10 16:23] LABS: Basophils Absolute Auto 0.1 K/mm3 (0.0-0.1); Basophils Percent Auto 0.6 % (0.2-1.2); Eosinophils Absolute Auto 0.3 K/mm3 (0-0.3); Eosinophils Percent Auto 3.1 % (0-4.4); Hematocrit 39.6 % (42.0-52.0); Hemoglobin 12.7 g/dL (14.0-18.0); Immature Granulocyte Absolute 0.03 K/mm3 (0.00-0.031); Immature Granulocyte Percent A 0.3 % (0-0.5); Lymphocytes Absolute Auto 2.91 K/mm3 (0.9-3.2); Mean Corpuscular HGB Conc 32.1 g/dl (32-36); Mean Corpuscular Hemoglobin 28.2 pg (26-34); Mean Corpuscular Volume 87.8 fl (80-100); Mean Platelet Volume 10.2 fl (7.4-10.4); Monocytes Absolute Auto 0.8 K/mm3 (0.1-0.6); Monocytes Percent Auto 7.4 % (2.6-8.5); Neutrophils Absolute Auto 6.6 K/mm3 (1.3-6.7); Neutrophils Percent Auto 61.6 % (45.5-73.1); Platelet Count Result 370 k/mm3 (150-375); Red Blood Count 4.51 M/mm3 (4.6-6.20); Red Cell Distribution Width 14.9 % (11.5-14.5); White Blood Count 10.8 K/mm3 (4.5-10.0)
[2023-10-10 17:21] LABS: Alanine Aminotransferase 41 U/L (6-50); Albumin Level 4.5 g/dL (3.5-5.1); Alkaline Phosphatase 101 U/L (38-126); Anion Gap 10 mmol/L (8-16); Aspartate Amino Transferase 58 U/L (17-59); Bilirubin,Total 0.6 mg/dL (0.2-1.3); Blood Urea Nitrogen 18 mg/dL (9-20); Calcium 9.8 mg/dL (8.4-10.2); Carbon Dioxide 26 mmol/L (22-30); Chloride 104 mmol/L (98-107); Cholesterol 173 mg/dL (0-200); Estimated Glomerular Filt Rate > 60; Glucose 101 mg/dL (65-110); HDL Direct 30 mg/dL; Sodium 140 mmol/L (137-145); Triglycerides 142 mg/dL (<150)
[2023-10-10 17:31] LABS: LDL Cholesterol Direct 124 mg/dL
[2023-10-10 17:51] LABS: Prostate Specific Antigen 3.6 ng/mL (< OR = 4.0); Thyroid Stimulating Hormone 0.689 uIU/mL (0.465-4.680)
== END 2023-10-10 14:31 | disposition home or self-care (01) ==
LOC: ANHGOSHLAB 14:32
PROVIDERS: PCP Family Medicine; Visit Provider Physician Assistant
DX: Z12.5 Encounter for screening for malignant neoplasm of prostate (principal); I10 Essential (primary) hypertension; R73.03 Prediabetes; E66.9 Obesity, unspecified; Z79.899 Other long term (current) drug therapy
CPT/HCPCS: 36415; 80053; 80061; 83036; 84153; 84443; 85025; G0103

== ENCOUNTER 2023-10-29 11:50 | Outpatient (CLI) | payer OTHER, SELFPAY ==
--- NOTE | ~2023-10-29 | XR_ITS ---
EXAM: XR lumbar spine 6V w bending DATE: 10/29/2023 12:13 HISTORY: M54.51 - Vertebrogenic low back pain, WORSENING LB PAIN . COMPARISON: 07/23/2019. FINDINGS: Moderate lumbar scoliosis. Multilevel moderate and severe disc space narrowing and margina l osteophytosis, including large bridging osteophytes at T12-L1 and L1-2. Multilevel vacuum phenomeno n in the lower thoracic spine and at the thoracolumbar junction, as well as L5-S1. Multilevel moderat e facet hypertrophy and sclerosis. No pars defect. 6 mm retrolisthesis at L1-2. 3 mm retrolisthesis a t L2-3. 2 mm anterolisthesis at L4-5. Very limited range of motion in extension. No range of motion i n flexion. IMPRESSION: Lumbar scoliosis. Multilevel severe and moderate degrees of degenerative disc disease. Mu ltilevel moderate lower lumbar facet arthropathy. Limited range of motion limits the ability to asses s for dynamic listhesis. Multilevel grade 1 listheses are present. Reviewed, dictated and finalized at location K. IMPRESSION: Lumbar scoliosis. Multilevel severe and moderate degrees of degener ative disc disease. Multilevel moderate lower lumbar facet arthropathy. Limited range of motion limits the ability to assess for dynamic listhesis. Multilevel grade 1 listheses are present.
== END 2023-10-29 11:51 | disposition home or self-care (01) ==
LOC: ANHIMG 11:53
PROVIDERS: PCP Family Medicine; Visit Provider Anesthesiology Pain Medicine
DX: M54.51 Vertebrogenic low back pain (principal); G89.29 Other chronic pain; M47.817 Spondylosis without myelopathy or radiculopathy, lumbosacral region; M41.86 Other forms of scoliosis, lumbar region; M47.896 Other spondylosis, lumbar region; M51.36 Other intervertebral disc degeneration, lumbar region
CPT/HCPCS: 72114

== ENCOUNTER 2023-11-04 16:00 | Outpatient (CLI) | payer OTHER, SELFPAY ==
--- NOTE | ~2023-11-04 | MR_ITS ---
EXAMINATION: MR lumbar spine wo con DATE: 11/04/2023 16:24 INDICATION: Dorsalgia, unspecified. TECHNIQUE: Magnetic resonance imaging (MRI) of the lumbar spine was performed without intravenous con trast. Sequences included sagittal T2-weighted FSE, sagittal T2-weighted FS FSE, sagittal T1-weighted FSE, and axial T2-weighted FSE. COMPARISON: Lumbar spine MRI 02/12/2020 FINDINGS: There is 6 degrees levocurvature of thoracolumbar spine. There is 3 mm retrolisthesis of T1 2 and L1, 4 mm retrolisthesis of L1 on L2, and 3 mm retrolisthesis of L2 on L3. There is 3 mm anterol isthesis of L4 on L5. There is mild chronic. There are wedging of T12 and L1 vertebral bodies. There is severely decreased disc height from T11-T12 through L2-L3, mildly decreased disc height at L3-L4 a nd L4-L5, and severely decreased disc height at L5-S1. The distal spinal cord signal intensity is nor mal. The conus medullaris is at L1. There is a 3.3 cm cyst in right kidney. The following disc levels are specifically discussed: L1-L2: The disc is bulging and has an annular fissure. There is mild bilateral facet joint osteoarthr itis. There is moderate bilateral neural foraminal stenosis. There is mild central canal stenosis. L2-L3: The disc is bulging with superimposed right subarticular zone extrusion. There is moderate lucia ateral facet joint osteoarthritis. There is mild right and moderate left neural foraminal stenosis. T here is mild central canal stenosis. L3-L4: The disc is bulging and has an annular fissure. There is moderate right and severe left facet joint osteoarthritis. There is mild bilateral neural foraminal stenosis. There is mild central canal stenosis. L4-L5: The disc is bulging and has an annular fissure. There is severe bilateral facet joint osteoart hritis. There is moderate bilateral neural foraminal stenosis. There is mild central canal stenosis. L5-S1: The disc is bulging and has an annular fissure. There is severe bilateral facet joint osteoart hritis. There is moderate bilateral neural foraminal stenosis. There is mild central canal stenosis. IMPRESSION: 1. Severe lumbar spondylosis, stable from 02/12/2020. Reviewed, dictated and finalized at location E.
== END 2023-11-04 16:01 ==
PROVIDERS: PCP Family Medicine; Visit Provider Anesthesiology Pain Medicine
DX: M43.06 Spondylolysis, lumbar region (principal)
CPT/HCPCS: 72148

== ENCOUNTER 2023-12-13 08:11 | Day surgery (SDC) | payer OTHER, SELFPAY ==
[2023-12-02 11:20] VITALS: BMI 29.8
--- NOTE | ~2023-12-13 | XR_ITS ---
XR fluoroscopy no charge Indication: Bilateral L3, L4 and L5 medial branch nerve block TECHNIQUE: Fluoroscopy used during Bilateral L3, L4 and L5 medial branch nerve block performed by Dr Bass [Pietro Rivers MD] on 12/13/2023. 13 seconds of fluoroscopy with 12 fluoroscopic images captured. FINDINGS: Correlate with procedure note. IMPRESSION: Fluoroscopy used during Bilateral L3, L4 and L5 medial branch nerve block. Reviewed, dictated and finalized at location B.
--- NOTE | 2023-12-13 09:32 | WPDHPUPDATE1 ---
History and Physical Update Update Date/Time: 12/13/23 09:32 History and Physical has been reviewed, including an updated exam of the patient. There are NO changes in the patient's condition. Risks, benefits, and alternatives have been discussed and questions answered. Patient agrees to proceed with procedure.
--- NOTE | 2023-12-13 09:33 | W.PM.PROC2 ---
Procedure Note - Detailed Date of Procedure 12/13/23 Pre-op Diagnosis Lumbosacral Spondylosis, Chronic Low Back Pain Post-op Diagnosis Same Procedure Performed Diagnostic bilateral Lumbar Medial Branch/Dorsal Ramus Blocks at L3, L4, L5 Treating the Ipsilateral L4-5, L5-S1 Facet Joints Under Fluoroscopic Guidance and with Contrast Control. ( 4 levels blocked). Surgeon Pietro Rivers MD Anesthesia Local Description of Procedure INFORMED CONSENT: Risks, benefits and alternatives to the procedure were discussed in detail with the patient who expressed explicit understanding and consent to proceed. Patient was informed verbally and in written form regarding the risks associated with the procedure including the low risk of serious infection, bleeding/bruising, allergic reaction, nerve or organ injury, paralysis, procedural site pain or discomfort, worsening pain and/or mobility, failure to treat and/or disfigurement. The patient expressed explicit understanding and consent to proceed. All materials required for the procedure were available prior to procedure start. Site and side were marked prior to procedure and confirmed in the presence of the patient. PROCEDURE IN DETAIL: The patient was brought to the procedural suite and placed in the prone position. Patient was made comfortable with use of pillows under the head/chest, hips and ankles. Skin overlying the injection site on the affected side(s) was prepared broadly with ChloraPrep applicator and draped in a sterile manner. Aseptic technique was used throughout. The endplates of the vertebral bodies at the site(s) of interest were aligned in the AP view. Ipsilateral oblique angulation was utilized to optimize visualization of the intersection between the superior articulating process and transverse process at each target site. Local anesthesia was established by infiltration with approximately 5 mL of 1% lidocaine via a 1-1/2 inch 27-gauge needle. A 25-gauge 3.5 inch Quincke spinal needle was advanced until the needle tip contacted periosteum at the target site, right L3. Lateral view was utilized to confirm the appropriate placement of the needle tip just anterior to the facet line and superior to the pedicle. In the Lateral view, 0.25 mL of Omnipaque 300 contrast medium was injected after negative aspiration for CSF, blood or other bodily fluid, showing appropriate extra-articular spread of contrast without evidence of intravascular, foraminal or intrathecal placement. A 0.5 mL solution of 0.5% PF bupivacaine was injected after negative repeat aspiration. Appropriate spread of the injectate was confirmed with washout of previously injected contrast. No parasthesias were elicited. Needle was removed completely intact without difficulty. The same exact procedure was repeated for all remaining levels on the ipsilateral side, right L4, L5 medial branches/dorsal ramus, modified as necessary to accommodate for the new target location with identical findings and results and no evidence of complication. The same exact procedure was repeated for all remaining levels on the contralateral side, left L3, L4, L5 medial branches/dorsal ramus, modified as necessary to accommodate for the new target location with identical findings and results and no evidence of complication. Images were saved and documented in the patient chart. Patient's skin was cleaned and sterile bandage applied. The patient tolerated the procedure well. The patient was transported to the recovery area in stable condition where they were observed for an appropriate amount of time prior to discharge, without evidence of complication. Patient was instructed on the appropriate completion of a pain diary over the next 12-24 hours. The patient was instructed to avoid excessive activity for the next 48 hours, including climbing and frequent use of stairs. Showers only for 48 hours. They were instructed not to drive or operate heavy machinery for 24 hours. They a
[2023-12-13 09:36] VITALS: BP 151/103; PULSE 75; RESP 14; TEMP 36.6; O2SAT 98
[2023-12-13 10:05] VITALS: BP 130/89; PULSE 76; RESP 12; O2SAT 95
[2023-12-13 10:10] VITALS: BP 132/92; PULSE 76; RESP 10; O2SAT 95
[2023-12-13] MEDS: LIDOCAINE HCL 1% PF INJ 5 ML VIAL XX (10:11)
[2023-12-13] MEDS: BUPivacaine HCL 0.5% 10 ML AMP INFILTRATE (10:12)
[2023-12-13 10:20] VITALS: BP 137/91; PULSE 74; RESP 18; O2SAT 97
== END 2023-12-13 10:38 | disposition home or self-care (01) ==
PROVIDERS: PCP Family Medicine; Visit Provider Anesthesiology Pain Medicine
PROC: (CPT 64493; principal; 2023-12-13 10:15)
DX: M47.817 Spondylosis without myelopathy or radiculopathy, lumbosacral region (principal); M54.59 Other low back pain
CPT/HCPCS: 64493; 64494; 99199

== ENCOUNTER 2023-12-21 00:52 | Day surgery (SDC) | payer OTHER, SELFPAY ==
[2023-12-08 10:41] VITALS: BMI 30.9
[2023-12-21 09:27] VITALS: BP 139/100; PULSE 85; RESP 18; TEMP 36.2; O2SAT 97
[2023-12-21] MEDS: LACTATED RINGERS 1,000 ML 150 ML IV CONT (09:32)
--- NOTE | 2023-12-21 10:19 | PM.HPGS ---
History of Present Illness History of Present Illness Consent: Risks, benefits, and alternatives have been discussed and questions answered. Patient agrees to proceed with procedure. Chief complaint: Personal Hx of colon polyps Narrative: Charles Mccabe is a 58 year old male with colon polyp 5 years ago Review of Systems Review of Systems: All systems reviewed & are unremarkable except as noted in HPI and below PMFSH Past Medical History Medical History (Updated 11/17/23 @ 09:11 by Alba Saeed MD) Arthrosis of first carpometacarpal joint Hypertension Obesity GREGG (obstructive sleep apnea) no CPAP Renal stones Family History Family History Other Family history of multiple sclerosis Social History Social History Smoking status: Never smoker Second hand tobacco smoke exposure: No Alcohol intake: current Drinks per week: 2 Alcohol use details: STATES MAYBE 1-2 DRINKS LAMAR OTEHR WEEK Substance use: current Substance use type: marijuana Living arrangements: with family Gender identity (if verbalized by the patient): Male Spiritual care concerns: No Meds Home Medications and Allergies Home Medications Medication Instructions Recorded Confirmed Type gabapentin 300 mg capsule 300 mg PO QHS 07/14/23 12/13/23 History tramadol 50 mg tablet 50 mg PO Q6H PRN pain #60 tabs 07/19/23 12/13/23 Rx tamsulosin 0.4 mg capsule See Rx Instructions .Route 09/30/23 12/13/23 Rx .COMPLEX #90 caps losartan 50 mg-hydrochlorothiazide See Rx Instructions .Route 10/06/23 12/13/23 Rx 12.5 mg tablet .COMPLEX #90 tabs nabumetone 750 mg tablet 750 mg PO DIRECTED 10/13/23 12/13/23 History ferrous sulfate 325 mg (65 mg 325 mg PO DAILY 10/14/23 12/13/23 History iron) tablet metoprolol succinate 25 mg See Rx Instructions .Route 11/23/23 12/13/23 Rx tablet,extended release 24 hr .COMPLEX #90 tabs multivitamin 1 tablet PO DAILY 12/02/23 12/13/23 History Allergies Allergy/AdvReac Type Severity Reaction Status Date / Time No Known Allergies Allergy Verified 12/21/23 09:26 Vital Signs Vital Signs - 24 hr 12/21/23 09:27 Temperature 97.1 F L Pulse Rate 85 Respiratory Rate 18 Blood Pressure 139/100 H Pulse Oximetry 97 Oxygen Delivery Room Air Exam Const: General: comfortable and no acute distress HENMT: Face/Nose/Sinus: Normal nares present Eyes: General: appearance normal, both eyes and all related structures Neck: Neck: no JVD Resp: Auscultation: clear to auscultation bilaterally Cardio: Rate: regular rate Rhythm: regular rhythm GI: Inspection: non-distended GI Palp: Yes Soft to palpation Skin: General skin exam: normal color Neuro: General: gait normal Speech: normal speech Extrem: General: normal to inspection Psych: Mental Status: mental status grossly normal Assessment and Plan Assessment and plan (1) History of colon polyps: Code(s): Z86.010 - Personal history of colonic polyps Status: Acute Assessment and Plan: colonoscopy
--- NOTE | 2023-12-21 10:25 | WPDANESEPPF ---
Anes - Initial Pre Proc Eval Procedure: Operation Date: 12/21/23 10:30 Proposed Procedures p Colonoscopy - Jean Owens MD Date/Time: 12/21/23 10:25 Surgeon: Jean Owens MD Pre Op Diagnosis: Personal Hx of colon polyps Patient Data Age: 58 Gender: M Height: 1.83 m Weight: 94.9 kg Last Vital Signs Temp 97.1 F L 12/21/23 09:27 Pulse 85 12/21/23 09:27 Resp 18 12/21/23 09:27 BP 139/100 H 12/21/23 09:27 Pulse Ox 97 12/21/23 09:27 O2 Del Method Room Air 12/21/23 09:27 Allergies Allergy/AdvReac Type Severity Reaction Status Date / Time No Known Allergies Allergy Verified 12/21/23 09:26 Home Medications Medication Instructions Recorded Confirmed Type gabapentin 300 mg capsule 300 mg PO QHS 07/14/23 12/13/23 History tramadol 50 mg tablet 50 mg PO Q6H PRN pain #60 tabs 07/19/23 12/13/23 Rx tamsulosin 0.4 mg capsule See Rx Instructions .Route 09/30/23 12/13/23 Rx .COMPLEX #90 caps losartan 50 mg-hydrochlorothiazide See Rx Instructions .Route 10/06/23 12/13/23 Rx 12.5 mg tablet .COMPLEX #90 tabs nabumetone 750 mg tablet 750 mg PO DIRECTED 10/13/23 12/13/23 History ferrous sulfate 325 mg (65 mg 325 mg PO DAILY 10/14/23 12/13/23 History iron) tablet metoprolol succinate 25 mg See Rx Instructions .Route 11/23/23 12/13/23 Rx tablet,extended release 24 hr .COMPLEX #90 tabs multivitamin 1 tablet PO DAILY 12/02/23 12/13/23 History Patient hx anesthesia problems: none Family hx anesthesia problems: none Results Review: All pre-operative results and documents have been reviewed as part of the pre-operative evaluation. [facility] Past Medical History Medical History (Updated 11/17/23 @ 09:11 by Alba Saeed MD) Arthrosis of first carpometacarpal joint Hypertension Obesity GREGG (obstructive sleep apnea) no CPAP Renal stones Family History Family History Other Family history of multiple sclerosis Social History Social History Smoking status: Never smoker Second hand tobacco smoke exposure: No Alcohol intake: current Drinks per week: 2 Alcohol use details: STATES MAYBE 1-2 DRINKS LAMAR OTEHR WEEK Substance use: current Substance use type: marijuana Living arrangements: with family Gender identity (if verbalized by the patient): Male Spiritual care concerns: No Anes - Eval Final PreProcedure Day of Procedure 12/21/23 10:25 Patient weight: normal Heart: regular rate and rhythm Lungs: clear to auscultation Airway: Mallampati scale class II Neurological: alert and oriented Last oral intake: >/= 8 hours ASA classification: II Emergent: no Anesthetic plan: proceed Anesthesia type and monitoring: general GIVS and standard monitoring Results Review: All pre-operative results and documents have been reviewed as part of the pre-operative evaluation. Informed Consent: The patient's anesthetic plan and its attendant risks and benefits were discussed with the patient/family/POA. Questions were solicited and answers provided to the satisfaction of the patient/family/POA.
[2023-12-21 10:46] VITALS: BP 138/100; PULSE 81; RESP 19; O2SAT 97
[2023-12-21 10:56] VITALS: BP 141/101; PULSE 76; RESP 19; O2SAT 98
[2023-12-21 11:06] VITALS: BP 166/115; PULSE 70; RESP 21; O2SAT 99
== END 2023-12-21 11:12 | disposition home or self-care (01) ==
PROVIDERS: PCP Family Medicine; Visit Provider Internal Medicine Gastroenterology
PROC: 0DJD8ZZ Inspection of Lower Intestinal Tract, Via Natural or Artificial Opening Endoscopic (ICD-10-PCS; CPT 45378; principal; 2023-12-21 10:30)
DX: Z12.11 Encounter for screening for malignant neoplasm of colon (principal); K63.5 Polyp of colon; K62.1 Rectal polyp; K57.30 Diverticulosis of large intestine without perforation or abscess without bleeding; K64.8 Other hemorrhoids; I10 Essential (primary) hypertension; G47.33 Obstructive sleep apnea (adult) (pediatric); F12.90 Cannabis use, unspecified, uncomplicated
CPT/HCPCS: 45385; 88305; J2704; J7120

== ENCOUNTER 2024-01-31 07:41 | Day surgery (SDC) | payer OTHER, SELFPAY ==
--- NOTE | ~2024-01-31 | XR_ITS ---
EXAMINATION: XR fluoroscopy no charge DATE: 01/31/2024 8:55 CDT INDICATION: BAKARI L3, L4, L5 NERVE BK . TECHNIQUE: 11 fluoroscopic images and 3 cine clips of the lumbar spine were obtained during bilateral L3, L4, and L5 nerve block, performed by Pietro Rivers MD. I was not present during the procedure . Fluoroscopy exposure time was 32.2 seconds. Air Kerma 11.93 mGy. COMPARISON: 12/13/2023 FINDINGS/IMPRESSION: Fluoroscopic documentation of bilateral L3, L4, and L5 nerve block. Please refer to the operative not e for complete procedural details . Reviewed, dictated and finalized at location K.
[2024-01-31 08:07] VITALS: BMI 29.1
[2024-01-31 08:11] VITALS: BP 144/100; PULSE 70; RESP 16; TEMP 36.6; O2SAT 98
--- NOTE | 2024-01-31 08:45 | PM.HPGS ---
History of Present Illness History of Present Illness Consent: Risks, benefits, and alternatives have been discussed and questions answered. Patient agrees to proceed with procedure. Chief complaint: Lumbosacral Spondylosis, Dorsalgia Narrative: Charles Mccabe is a 58 year old malewith chronic, recalcitrant and disabling bilateral lumbosacral back pain secondary to degenerative spondylosis with failure to respond to aggressive conservative measures including PT, oral and topical analgesics, opioid and nonopioid analgesics, rest, time and activity/behavioral modification over the past 1-2 years who presents for diagnostic/prognostic medial branch blocks (#2) at Bilateral L3, L4, L5 under fluoroscopic guidance and with contrast control. Review of Systems Review of Systems: Patient denies any new infectious, allergic, cardiopulmonary, neurologic or constitutional symptoms or changes in activity tolerance or exercise capacity including new or progressive SOB/SU, peripheral edema, productive cough, dysuria, nausea/vomiting, diarrhea, weight change, fevers/chills/night sweats, new or progressive neurologic deficit, cognitive or mood changes since last seen, except as documented in the HPI. All systems reviewed & are unremarkable except as noted in HPI and below PMFSH Past Medical History Medical History Arthrosis of first carpometacarpal joint Hypertension Obesity GREGG (obstructive sleep apnea) no CPAP Renal stones Family History Family History Other Family history of multiple sclerosis Social History Social History (Updated 01/19/24 @ 15:36 by Martha Mak MA) Smoking status: Never smoker Second hand tobacco smoke exposure: No Alcohol intake: current Alcohol use details: occasionally Substance use: current Substance use type: marijuana Do You Feel Safe in your Home?: Yes Lack of Transportation: No Lack of Food: Never True Current Housing: I Have Housing Concerned About Future Housing: No Difficulty Paying Gas/Electric Bills: No Difficulty Paying for Meds: No Currently Unemployed: No Education: Trade/Vocational Certificate Difficulty w/ Childcare or Family Care: No Living arrangements: with family Gender identity (if verbalized by the patient): Male Spiritual care concerns: No Meds Home Medications and Allergies Home Medications Medication Instructions Recorded Confirmed Type gabapentin 300 mg capsule 300 mg PO QHS 07/14/23 01/31/24 History tramadol 50 mg tablet 50 mg PO Q6H PRN pain #60 tabs 07/19/23 01/31/24 Rx tamsulosin 0.4 mg capsule See Rx Instructions .Route 09/30/23 01/31/24 Rx .COMPLEX #90 caps losartan 50 mg-hydrochlorothiazide See Rx Instructions .Route 10/06/23 01/31/24 Rx 12.5 mg tablet .COMPLEX #90 tabs nabumetone 750 mg tablet 750 mg PO DIRECTED 10/13/23 01/31/24 History ferrous sulfate 325 mg (65 mg 325 mg PO DAILY 10/14/23 01/31/24 History iron) tablet metoprolol succinate 25 mg See Rx Instructions .Route 11/23/23 01/31/24 Rx tablet,extended release 24 hr .COMPLEX #90 tabs multivitamin 1 tablet PO DAILY 12/02/23 01/31/24 History Allergies Allergy/AdvReac Type Severity Reaction Status Date / Time No Known Allergies Allergy Verified 01/31/24 08:03 Vital Signs Vital Signs - 24 hr 01/31/24 08:11 Temperature 98 F Pulse Rate 70 Respiratory Rate 16 Blood Pressure 144/100 H Pulse Oximetry 98 Oxygen Delivery Room Air Exam Narrative: The patient's physical exam is essentially unchanged from prior examination on 12/27/2023. Specifically, patient demonstrates normal lung capacity, tidal volume and respiratory rate without wheezes, crackles, rales or rubs. Heart rate and rhythm are regular without murmurs, gallops or rubs. No JVD. Pulses 2+ globally without increasing peripheral edema. AAOx3, NC/
--- NOTE | 2024-01-31 08:51 | WPDHPUPDATE1 ---
History and Physical Update Update Date/Time: 01/31/24 08:51 History and Physical has been reviewed, including an updated exam of the patient. There are NO changes in the patient's condition. Risks, benefits, and alternatives have been discussed and questions answered. Patient agrees to proceed with procedure.
--- NOTE | 2024-01-31 08:52 | W.PM.PROC2 ---
Procedure Note - Detailed Date of Procedure 01/31/24 Pre-op Diagnosis Lumbosacral Spondylosis, Dorsalgia Post-op Diagnosis Same Procedure Performed Diagnostic bilateral Lumbar Medial Branch/Dorsal Ramus Blocks at L3, L4, L5 Treating the bilateral L4-5, L5-S1 Facet Joints Under Fluoroscopic Guidance and with Contrast Control. ( 4 levels blocked). Surgeon Pietro Rivers MD Anesthesia Local Description of Procedure INFORMED CONSENT: Risks, benefits and alternatives to the procedure were discussed in detail with the patient who expressed explicit understanding and consent to proceed. Patient was informed verbally and in written form regarding the risks associated with the procedure including the low risk of serious infection, bleeding/bruising, allergic reaction, nerve or organ injury, paralysis, procedural site pain or discomfort, worsening pain and/or mobility, failure to treat and/or disfigurement. The patient expressed explicit understanding and consent to proceed. All materials required for the procedure were available prior to procedure start. Site and side were marked prior to procedure and confirmed in the presence of the patient. PROCEDURE IN DETAIL: The patient was brought to the procedural suite and placed in the prone position. Patient was made comfortable with use of pillows under the head/chest, hips and ankles. Skin overlying the injection site on the affected side(s) was prepared broadly with ChloraPrep applicator and draped in a sterile manner. Aseptic technique was used throughout. The endplates of the vertebral bodies at the site(s) of interest were aligned in the AP view. Ipsilateral oblique angulation was utilized to optimize visualization of the intersection between the superior articulating process and transverse process at each target site. Local anesthesia was established by infiltration with approximately 5 mL of 1% lidocaine via a 1-1/2 inch 27-gauge needle. A 25-gauge 3.5 inch Quincke spinal needle was advanced until the needle tip contacted periosteum at the target site, right L3. Lateral view was utilized to confirm the appropriate placement of the needle tip just anterior to the facet line and superior to the pedicle. In the Lateral view, 0.25 mL of Omnipaque 300 contrast medium was injected after negative aspiration for CSF, blood or other bodily fluid, showing appropriate extra-articular spread of contrast without evidence of intravascular, foraminal or intrathecal placement. A 0.5 mL solution of 2.0% PF lidocaine was injected after negative repeat aspiration. Appropriate spread of the injectate was confirmed with washout of previously injected contrast. No parasthesias were elicited. Needle was removed completely intact without difficulty. The same exact procedure was repeated for all remaining levels on the ipsilateral side, right L4, L5 medial branches/dorsal ramus, modified as necessary to accommodate for the new target location with identical findings and results and no evidence of complication. The same exact procedure was repeated for all remaining levels on the contralateral side, left L3, L4, L5 medial branches/dorsal ramus, modified as necessary to accommodate for the new target location with identical findings and results and no evidence of complication. Images were saved and documented in the patient chart. Patient's skin was cleaned and sterile bandage applied. The patient tolerated the procedure well. The patient was transported to the recovery area in stable condition where they were observed for an appropriate amount of time prior to discharge, without evidence of complication. Patient was instructed on the appropriate completion of a pain diary over the next 12-24 hours. The patient was instructed to avoid excessive activity for the next 48 hours, including climbing and frequent use of stairs. Showers only for 48 hours. They were instructed not to drive or operate heavy machinery for 24 hours. They are to monito
[2024-01-31 09:00] VITALS: BP 163/104; PULSE 60; RESP 12; O2SAT 96
[2024-01-31 09:06] VITALS: BP 155/104; PULSE 62; RESP 12; O2SAT 96
[2024-01-31 09:11] VITALS: BP 150/100; PULSE 63; RESP 12; O2SAT 98
[2024-01-31] MEDS: LIDOCAINE HCL 1% PF INJ 5 ML VIAL XX (09:12)
[2024-01-31] MEDS: LIDOCAINE HCL 2% PF INJ 5 ML VIAL INFILTRATE (09:13)
[2024-01-31 09:14] VITALS: BP 163/102; PULSE 68; RESP 12; O2SAT 98
[2024-01-31 09:20] VITALS: BP 162/108; PULSE 61; RESP 14; O2SAT 99
== END 2024-01-31 09:35 | disposition home or self-care (01) ==
PROVIDERS: PCP Family Medicine; Visit Provider Anesthesiology Pain Medicine
PROC: (CPT 64493; principal; 2024-01-31 08:45)
DX: M47.817 Spondylosis without myelopathy or radiculopathy, lumbosacral region (principal); M54.89 Other dorsalgia
CPT/HCPCS: 64493; 64494; 99199

== ENCOUNTER 2024-05-01 07:33 | Day surgery (SDC) | payer OTHER, SELFPAY ==
[2024-04-20 12:41] VITALS: BMI 30.9
--- NOTE | 2024-04-30 17:11 | P.PNAN_ITS ---
Anes - Initial Pre Proc Eval Procedure: Operation Date: 05/01/24 09:00 Proposed Procedures p Bilateral L3, L4, L5 Medial Branch/Dorsal Ramus Thermal Radiofrequency Ablation under Fluoroscopic Guidance - Pietro Rivers MD Date/Time: 04/30/24 17:11 Surgeon: Pietro Rivers MD Pre Op Diagnosis: Lumbosacral Spondylosis, Chronic low back pain Patient Data Age: 59 Gender: M Height: 1.83 m Weight: 103.5 kg Allergies Allergy/AdvReac Type Severity Reaction Status Date / Time No Known Allergies Allergy Verified 05/01/24 08:13 Home Medications Medication Instructions Recorded Confirmed Type ferrous sulfate 325 mg (65 mg 325 mg PO DAILY 10/14/23 04/20/24 History iron) tablet multivitamin 1 tablet PO DAILY 12/02/23 04/20/24 History acetaminophen 325 mg tablet 650 mg PO HS 04/20/24 04/20/24 History losartan 50 mg-hydrochlorothiazide 1 tablet PO DAILY 04/20/24 04/20/24 History 12.5 mg tablet metoprolol succinate 25 mg 25 mg PO DAILY 04/20/24 04/20/24 History tablet,extended release 24 hr tamsulosin 0.4 mg capsule 0.4 mg PO HS 04/20/24 04/20/24 History tramadol 50 mg tablet 50 mg PO Q6H PRN pain #60 tabs 04/25/24 Rx Patient hx anesthesia problems: none Family hx anesthesia problems: none Results Review: All pre-operative results and documents have been reviewed as part of the pre- operative evaluation. [facility] Past Medical History Medical History Arthrosis of first carpometacarpal joint Hypertension Obesity GREGG (obstructive sleep apnea) no CPAP Renal stones Family History Family History Other Family history of multiple sclerosis Social History Social History (Updated 01/19/24 @ 15:36 by Martha Mak MA) Smoking status: Never smoker Second hand tobacco smoke exposure: Yes Alcohol intake: current Alcohol use details: occasional Substance use: current Substance use type: marijuana Do You Feel Safe in your Home?: Yes Lack of Transportation: No Lack of Food: Never True Current Housing: I Have Housing Concerned About Future Housing: No Difficulty Paying Gas/Electric Bills: No Difficulty Paying for Meds: No Currently Unemployed: No Education: Trade/Vocational Certificate Difficulty w/ Childcare or Family Care: No Living arrangements: with family Gender identity (if verbalized by the patient): Male Spiritual care concerns: No Anes - Eval Final PreProcedure Day of Procedure 04/30/24 17:11 Patient weight: overweight Heart: regular rate and rhythm Lungs: clear to auscultation Airway: Mallampati scale class III Neurological: alert and oriented Last oral intake: >/= 8 hours ASA classification: III Emergent: no Anesthetic plan: proceed Anesthesia type and monitoring: monitored anesthesia care and standard monitoring Results Review: All pre-operative results and documents have been reviewed as part of the pre- operative evaluation. Informed Consent: The patient's anesthetic plan and its attendant risks and benefits were discussed with the patient/family/POA. Questions were solicited and answers provided to the satisfaction of the patient/family/POA.
--- NOTE | ~2024-05-01 | XR_ITS ---
EXAMINATION: XR fluoroscopy no charge DATE: 05/01/2024 09:27 INDICATION: Lumbosacral spondylosis. Chronic low back pain. TECHNIQUE: 93 intraoperative fluoroscopic views of the lumbar spine were obtained. I was not present. Fluoroscopy exposure time was 34 seconds. COMPARISON: Lumbar spine MRI 11/04/2023 FINDINGS: There is severe lumbar spondylosis. Multiple needles overlie the lumbar spine for ablation of the bilateral lumbar medial branches/dorsal rami at L3, L4, and L5. IMPRESSION: 1. Severe lumbar spondylosis. Reviewed, dictated and finalized at location A.
--- NOTE | 2024-05-01 06:35 | PM.HPGS ---
History of Present Illness History of Present Illness Consent: Risks, benefits, and alternatives have been discussed and questions answered. Patient agrees to proceed with procedure. Chief complaint: Lumbosacral Spondylosis, Chronic low back pain Narrative: Charles Mccabe is a 59 year old male with chronic, recalcitrant and disabling bilateral lumbosacral back pain secondary to degenerative spondylosis with failure to respond to aggressive conservative measures including PT, oral and topical analgesics, opioid and nonopioid analgesics, rest, time and activity/behavioral modification over the past 1-2 years who presents for thermal radiofrequency ablation of the bilateral L3, L4, L5 medial branch/ dorsal rami to address bilateral L4-5, L5-S1 facet joints under fluoroscopic guidance and with contrast control. Review of Systems Review of Systems: Patient denies any new infectious, allergic, cardiopulmonary, neurologic or constitutional symptoms or changes in activity tolerance or exercise capacity including new or progressive SOB/SU, peripheral edema, productive cough, dysuria, nausea/vomiting, diarrhea, weight change, fevers/chills/night sweats, new or progressive neurologic deficit, cognitive or mood changes since last seen, except as documented in the HPI. All systems reviewed & are unremarkable except as noted in HPI and below PMFSH Past Medical History Medical History Arthrosis of first carpometacarpal joint Hypertension Obesity GREGG (obstructive sleep apnea) no CPAP Renal stones Family History Family History Other Family history of multiple sclerosis Social History Social History (Updated 01/19/24 @ 15:36 by Martha Mak MA) Smoking status: Never smoker Second hand tobacco smoke exposure: Yes Alcohol intake: current Alcohol use details: occasional Substance use: current Substance use type: marijuana Do You Feel Safe in your Home?: Yes Lack of Transportation: No Lack of Food: Never True Current Housing: I Have Housing Concerned About Future Housing: No Difficulty Paying Gas/Electric Bills: No Difficulty Paying for Meds: No Currently Unemployed: No Education: Trade/Vocational Certificate Difficulty w/ Childcare or Family Care: No Living arrangements: with family Gender identity (if verbalized by the patient): Male Spiritual care concerns: No Meds Home Medications and Allergies Home Medications Medication Instructions Recorded Confirmed Type ferrous sulfate 325 mg (65 mg 325 mg PO DAILY 10/14/23 04/20/24 History iron) tablet multivitamin 1 tablet PO DAILY 12/02/23 04/20/24 History acetaminophen 325 mg tablet 650 mg PO HS 04/20/24 04/20/24 History losartan 50 mg-hydrochlorothiazide 1 tablet PO DAILY 04/20/24 04/20/24 History 12.5 mg tablet metoprolol succinate 25 mg 25 mg PO DAILY 04/20/24 04/20/24 History tablet,extended release 24 hr tamsulosin 0.4 mg capsule 0.4 mg PO HS 04/20/24 04/20/24 History tramadol 50 mg tablet 50 mg PO Q6H PRN pain #60 tabs 04/25/24 Rx Allergies Allergy/AdvReac Type Severity Reaction Status Date / Time No Known Allergies Allergy Verified 04/20/24 12:36 Exam Narrative: The patient's physical exam is essentially unchanged from prior examination on 02/20/2024. Specifically, patient demonstrates normal lung capacity, tidal volume and respiratory rate without wheezes, crackles, rales or rubs. Heart rate and rhythm are regular without murmurs, gallops or rubs. No JVD. Pulses 2+ globally without increasing peripheral edema. AAOx3, NC/AT without acute distress or altered consciousness. Speech, cognition, mood and judgment at baseline and within normal limits. Const: General: cooperative, no acute distress, alert, awake and Physically active Orientation/consciousness: patient oriented x3
--- NOTE | 2024-05-01 06:38 | WPDHPUPDATE1 ---
History and Physical Update Update Date/Time: 05/01/24 06:38 History and Physical has been reviewed, including an updated exam of the patient. There are NO changes in the patient's condition. Risks, benefits, and alternatives have been discussed and questions answered. Patient agrees to proceed with procedure.
--- NOTE | 2024-05-01 06:39 | W.PM.PROC2 ---
Procedure Note - Detailed Date of Procedure 05/01/24 Pre-op Diagnosis Lumbosacral Spondylosis, Chronic low back pain Post-op Diagnosis Same Procedure Performed Thermal Radiofrequency Ablation of the [Right Left] Lumbar Medial Branches[/Dorsal Ramus] at [L3, L4, L5] Levels Treating the Ipsilateral [L4-5, L5-S1] Facet Joints Under Fluoroscopic Guidance ([2] Levels Treated). Surgeon Pietro iRvers MD Anesthesia Local Description of Procedure INFORMED CONSENT: Risks, benefits and alternatives to the procedure were discussed in detail with the patient who expressed explicit understanding and consent to proceed. Patient was informed verbally and in written form regarding the risks associated with the procedure including the low risk of serious infection, bleeding/bruising, allergic reaction, nerve or organ injury, paralysis, procedural site pain or discomfort, worsening pain and/or mobility, failure to treat and/or disfigurement. The patient expressed explicit understanding and consent to proceed. All materials required for the procedure were available prior to procedure start. Site and side were marked prior to procedure and confirmed in the presence of the patient. PROCEDURE IN DETAIL: The patient was brought to the procedural suite and placed in the prone position. Patient was made comfortable with use of pillows under the head/chest, hips and ankles. Skin overlying the injection site on the affected side(s) was prepared broadly with ChloraPrep applicator and draped in a sterile manner. Aseptic technique was used throughout. The endplates of the vertebral bodies at the site(s) of interest were aligned in the AP view. Ipsilateral oblique angulation was utilized to optimize visualization of the intersection between the superior articulating process and transverse process at each target site. Local anesthesia was established by infiltration with approximately 5 mL of 1% lidocaine via a 1-1/2 inch 27-gauge needle. An [16]-gauge [100]mm [Plunify] RF needle with [curved] [10]mm active tip was advanced in the AP view until the needle tip contacted the periosteum at the target site, [right left] [L3] medial branch. Lateral view was utilized to adjust and confirm the appropriate placement of the needle tip just anterior to the facet line, superior to the pedicle and posterior to the foramen. The appropriately-sized RF cannula was inserted into the RF needle and motor stimulation performed with no subjective or objective evidence of recruited muscle activity with stimulation up to 3.0 volts at a frequency of 2Hz. 1.0 mL of 2.0% PF lidocaine was injected after negative aspiration. Grounding electrode in place and functioning. After a 90s pause, lesioning was performed to 90 degrees centigrade for 90s ensuring lack of symptoms in the extremity throughout. Needle was rotated 180 degrees and lesioning repeated in a similar manner. Patient tolerated this well. No parasthesias were elicited. Needle was removed completely intact without difficulty. The same procedure was repeated for all intended levels/ structures on the ipsilateral side, [right left] [L4, L5 medial branch/dorsal ramus] with identical methodology, modified to compensate for new location, with similar results and no evidence of complication. [The same exact procedure was repeated for all remaining levels on the contralateral side, [right left] [L3, L4, L5 medial branches/dorsal ramus], modified as necessary to accommodate for the new target location with identical findings/results and no evidence of complication.] Images were saved and documented in the patient chart. Patient's skin was cleansed and sterile bandage applied. The patient tolerated the procedure well. The patient was transported to the recovery area in stable condition where they were observed for an appropriate amount of time prior to discharge, without evidence of complication. The patient was instructed to avoid excessive activity for the ne
--- NOTE | 2024-05-01 06:46 | W.PM.PROC2 ---
Procedure Note - Detailed Date of Procedure 05/01/24 Pre-op Diagnosis Lumbosacral Spondylosis, Chronic low back pain Post-op Diagnosis Same Procedure Performed Thermal Radiofrequency Ablation of the Bilateral Lumbar Medial Branches/Dorsal Ramus at the L3, L4, L5 Levels Treating the Bilateral L4-5, L5-S1 Facet Joints Under Fluoroscopic Guidance (4 Levels Treated). Surgeon Pietro Rivers MD Coin Purse Assembler None. Anesthesia Local (w/ MAC) Description of Procedure INFORMED CONSENT: Risks, benefits and alternatives to the procedure were discussed in detail with the patient who expressed explicit understanding and consent to proceed. Patient was informed verbally and in written form regarding the risks associated with the procedure including the low risk of serious infection, bleeding/bruising, allergic reaction, nerve or organ injury, paralysis, procedural site pain or discomfort, worsening pain and/or mobility, failure to treat and/or disfigurement. The patient expressed explicit understanding and consent to proceed. All materials required for the procedure were available prior to procedure start. Site and side were marked prior to procedure and confirmed in the presence of the patient. PROCEDURE IN DETAIL: The patient was brought to the procedural suite and placed in the prone position. Patient was made comfortable with use of pillows under the head/chest, hips and ankles. ASA standard monitors were applied and used throughout the procedure. Skin overlying the injection site on the affected side(s) was prepared broadly with ChloraPrep applicator and draped in a sterile manner. Aseptic technique was used throughout. The endplates of the vertebral bodies at the site(s) of interest were aligned in the AP view. Ipsilateral oblique angulation was utilized to optimize visualization of the intersection between the superior articulating process and transverse process at each target site. Local anesthesia was established by infiltration with approximately 5 mL of 1% lidocaine via a 1-1/2 inch 27-gauge needle divided over each site treated. A 16-gauge 100mm [employer] RF needle with curved 10mm active tip was advanced in the AP view until the needle tip contacted the periosteum at the target site, the right L3 medial branch. Lateral view was utilized to adjust and confirm the appropriate placement of the needle tip just anterior to the facet line, superior to the pedicle and posterior to the foramen. Grounding electrode was in place and functioning. The appropriately-sized RF cannula was inserted into the RF needle and motor stimulation was performed with no subjective or objective evidence of recruited muscle activity with stimulation up to 2.0 volts at a frequency of 2Hz. 1.5 mL of 2.0% PF lidocaine was injected after negative aspiration. After a 90s pause, lesioning was performed to 90 degrees centigrade for 90s ensuring lack of symptoms in the extremity throughout. Needle was rotated 180 degrees and lesioning repeated in a similar manner. Patient tolerated this well. No parasthesias were elicited. Needle was removed completely intact without difficulty. The same procedure was repeated for all intended levels/ structures on the ipsilateral side, right L4, L5 medial branch/dorsal ramus with identical methodology, modified to compensate for new location, with similar results and no evidence of complication. The same exact procedure was repeated for all remaining levels on the contralateral side, left L3, L4, L5 medial branches/dorsal ramus, modified as necessary to accommodate for the new target location with identical findings/results and no evidence of complication. Images were saved and documented in the patient chart. Patient's skin was cleansed and sterile bandage applied. The patient tolerated the procedure well. The patient was transported to the recovery area in stable condition where they were observed for an appropriate amount of time prior to discharge, without
[2024-05-01 07:55] VITALS: BP 146/97; PULSE 71; RESP 18; TEMP 36.7; O2SAT 98
[2024-05-01] MEDS: LACTATED RINGERS 1,000 ML 30 ML IV CONT (08:08)
[2024-05-01] MEDS: BUPivacaine HCL 0.5% PF 30 ML VIAL 10 ML INFILTRATE (09:26)
[2024-05-01] MEDS: LIDOCAINE HCL 1% PF INJ 5 ML VIAL INFILTRATE (09:26)
[2024-05-01] MEDS: LIDOCAINE HCL 2% PF INJ 5 ML VIAL 10 ML INFILTRATE (09:26)
[2024-05-01 09:28] VITALS: BP 132/97; PULSE 70; RESP 14; O2SAT 99
--- NOTE | 2024-05-01 09:35 | WPDANESPN ---
Anes - Prog Note Post-Op Date/Time: 05/01/24 09:35 Cardiovascular status: normal Respiratory status: normal Airway patency: baseline Mental status: baseline Post-Op hydration status: normal Vital Signs: Last Vital Signs Temp 36.7 C 05/01/24 07:55 Pulse 71 05/01/24 07:55 Resp 18 05/01/24 07:55 BP 146/97 H 05/01/24 07:55 Pulse Ox 98 05/01/24 07:55 O2 Del Method Room Air 05/01/24 07:55 Pain Score (VAS): 0 Post-procedural complaints: none Patient Feedback: Patient satisfied with anesthetic care. Other Findings: Patient vital signs back to baseline. Patient denies nausea and vomiting. Patient's pain under control. Patient OK for discharge.
[2024-05-01 09:45] VITALS: BP 143/95; PULSE 60; RESP 15; O2SAT 97
[2024-05-01 10:00] VITALS: BP 132/85; PULSE 56; RESP 15; O2SAT 97
== END 2024-05-01 10:20 | disposition home or self-care (01) ==
PROVIDERS: PCP Family Medicine; Visit Provider Anesthesiology Pain Medicine
PROC: (CPT 64635; principal; 2024-05-01 09:00)
DX: M47.817 Spondylosis without myelopathy or radiculopathy, lumbosacral region (principal); M54.59 Other low back pain
CPT/HCPCS: 64635 ×2; 64636 ×2; 99199

== ENCOUNTER 2025-02-26 06:44 | Day surgery (SDC) | payer OTHER, SELFPAY ==
[2025-02-13 09:57] VITALS: BMI 29.0
--- NOTE | ~2025-02-26 | XR_ITS ---
XR fluoroscopy no charge Indication: Thermal radiofrequency ablation bilateral L3, L4, L5 medial branch/dorsal ramus TECHNIQUE: Fluoroscopy used during Thermal radiofrequency ablation bilateral L3, L4, L5 medial branc h/dorsal ramus performed by [Pietro Rivers MD] on 02/26/2025. 82 seconds with 7 fluoroscopic im ages captured. FINDINGS: Correlate with procedure note. IMPRESSION: Fluoroscopy used during Thermal radiofrequency ablation bilateral L3, L4, L5 medial branc h/dorsal ramus. Reviewed, dictated and finalized at location B. IMPRESSION: Fluoroscopy used during Thermal radiofrequency ablation bilateral L 3, L4, L5 medial branch/dorsal ramus.
--- NOTE | 2025-02-26 06:40 | WPDHPUPDATE1 ---
History and Physical Update Update Date/Time: 02/26/25 06:40 History and Physical has been reviewed, including an updated exam of the patient. There are NO changes in the patient's condition. Risks, benefits, and alternatives have been discussed and questions answered. Patient agrees to proceed with procedure.
--- NOTE | 2025-02-26 06:41 | P.OP_ITS ---
Procedure Note - Detailed Date of Procedure 02/26/25 Pre-op Diagnosis Lumbosacral Spondylosis w/o Myelopathy or Radicul Post-op Diagnosis Same Procedure Performed Thermal Radiofrequency Ablation of the Bilateral Lumbar Medial Branches/Dorsal Ramus at the L3, L4, L5 Levels Treating the Bilateral L4-5, L5-S1 Facet Joints Under Fluoroscopic Guidance (4 Levels Treated). Surgeon Pietro Rivers MD Cafeteria Director None. Anesthesia Local (w/ MAC) Description of Procedure INFORMED CONSENT: Risks, benefits and alternatives to the procedure were discussed in detail with the patient who expressed explicit understanding and consent to proceed. Patient was informed verbally and in written form regarding the risks associated with the procedure including the low risk of serious infection, bleeding/bruising, allergic reaction, nerve or organ injury, paralysis, procedural site pain or discomfort, worsening pain and/or mobility, failure to treat and/or disfigurement. The patient expressed explicit understanding and consent to proceed. All materials required for the procedure were available prior to procedure start. Site and side were marked prior to procedure and confirmed in the presence of the patient. PROCEDURE IN DETAIL: The patient was brought to the procedural suite and placed in the prone position. Patient was made comfortable with use of pillows under the head/chest, hips and ankles. ASA standard monitors were applied and used throughout the procedure. Skin overlying the injection site on the affected side(s) was prepared broadly with ChloraPrep applicator and draped in a sterile manner. Aseptic technique was used throughout. The endplates of the vertebral bodies at the site(s) of interest were aligned in the AP view. Ipsilateral oblique angulation was utilized to optimize visualization of the intersection between the superior articulating process and transverse process at each target site. Local anesthesia was established by infiltration with approximately 5 mL of 1% lidocaine via a 1-1/2 inch 27-gauge needle divided over each site treated. A 16-gauge 100mm [employer] RF needle with curved 10mm active tip was advanced in the AP view until the needle tip contacted the periosteum at the target site, the right L3 medial branch. Lateral view was utilized to adjust and confirm the appropriate placement of the needle tip just anterior to the facet line, superior to the pedicle and posterior to the foramen. Grounding electrode was in place and functioning. The appropriately-sized RF cannula was inserted into the RF needle and motor stimulation was performed with no subjective or objective evidence of recruited muscle activity with stimulation up to 2.0 volts at a frequency of 2Hz. 1.5 mL of 2.0% PF lidocaine was injected after negative aspiration. After a 90s pause, lesioning was performed to 90 degrees centigrade for 90s ensuring lack of symptoms in the extremity throughout. Needle was rotated 180 degrees and lesioning repeated in a similar manner. Patient tolerated this well. No paresthesias were elicited. Needle was removed completely intact without difficulty. The same procedure was repeated for all intended levels/ structures on the ipsilateral side, right L4, L5 medial branch/dorsal ramus with identical methodology, modified to compensate for new location, with similar results and no evidence of complication. The same exact procedure was repeated for all remaining levels on the contralateral side, left L3, L4, L5 medial branches/dorsal ramus, modified as necessary to accommodate for the new target location with identical findings/results and no evidence of complication. Images were saved and documented in the patient chart. Patient's skin was cleansed and sterile bandage applied. The patient tolerated the procedure well. The patient was transported to the recovery area in stable condition where they were observed for an appropriate amount of time prior to discharge, without evidence of complication. The patient was instructed to avoid excessive activity for the next 48 hours, including climbing and frequent use of stairs. Showers only for 48 hours. They were instructed not to drive or operate heavy machinery for 24 hours. They are to monitor for severe headaches, fevers, chills, night sweats, erythema/swelling at the site or any other signs of infection, bleeding/bruising, bowel or bladder changes as well as new pain, weakness or numbness in the upper or lower extremi ty. Should they notice these changes, they are instructed to call our office immediately or report directly to the nearest Emergency Department if no answer or if after posted office hours. COMPLICATIONS: None COMMENTS: None Complications No immediate complications Condition Stable Disposition PACU [facility] Billing Surgery - Charge Forward: Surgery Billing
--- OUTSIDE RECORDS SUMMARY | 2025-02-26 06:47 | XMS_ITS ---
Author Organization [facility] Address [address] [place], [place] [id number] Care Team Providers Care Corporate Fitness Program Coordinator Name Role Phone IDALMIS ROA MD Primary Care Provider Unav ailable Mile Polanco Unavailable [phone] ROLAND HOWARD, MAX Unavailable Unavailable Encounters Encounter Location Date Provider Diagnosis [facility] [address], [facility] [address] [place], [place] [phone] 06/27/2024 Mile Polanco PLAN OF TREATMENT No Information
--- OUTSIDE RECORDS SUMMARY | 2025-02-26 06:47 | XMS_ITS ---
Author Organization [facility] Address [address] [place], [place] [id number] Care Team Providers Care Oil Deliverer Name Role Phone CRISPIN HOWARD, IDALMIS Primary Care Provider Unav ailable Sherri Mile Unavailable [phone] ROLAND HOWARD, BESSIE Unavailable Unavailable Summer Villalobos Unavailable [phone] MEDICATIONS Medication SIG (Take, Route, Frequency, Duration) Notes Start Date End Date Status nabumetone 750 mg 1 tab(s) orally twic e daily Active Voltaren [facility] 1% as directed a pplied topically 4 times a day Active metoprolol Active losartan Active Tylenol 8 HR [facility] 650 mg 1-2 tabs orally every 8 hours prn Active gabapentin 300 mg 1 cap(s) orally once a day at bedtime for 90 days Active traMADol pcp Active ergocalciferol 50,000 intl units 1 cap(s) orally once a week for 84 days Active Encounters Encounter Location Date Provider Diagnosis [facility], [address], [facility] [address] [place], [place] [id number] 11/25/2023 Summer Villalobos PLAN OF TREATMENT No Information
--- OUTSIDE RECORDS SUMMARY | 2025-02-26 06:47 | XMS_ITS | Patient Health Record ---
Author Organization [facility] Address [address] [place], [place] [id number] Care Team Providers Care Pediatric Immunologist Name Role Phone IDALMIS ROA MD Primary Care Provider Mile Buck Unavailable [phone] BESSIE WATKINS MD Unavailable Unavailable ALLERGIES No Known Allergies REASON FOR REFERRAL No Information MEDICATIONS Medication SIG (Take, Route, Frequency, Duration) Notes Start Date End Date Status nabumetone 750 mg 1 tab(s) orally twic e daily Active Voltaren [facility] 1% as directed a pplied topically 4 times a day Active metoprolol Active losartan Active gabapentin 300 mg 1 cap(s) orally once a day at bedtime for 90 days Active traMADol pcp Active ergocalciferol 50,000 intl units 1 cap(s) orally once a week for 84 days Active Tylenol 8 HR [facility] 650 mg 1-2 tabs orally every 8 hours prn Active PROBLEMS Problem Type ICD Code Onset Dates Problem Status W/U Status Risk SNOMED Code Notes Problem Osteoarthritis of hand, unspecified laterality, unspecified osteoarthritis type (M19.049) Active confirmed 80754844 Problem Low back pain at multiple sites (M54.50) Active confirmed 826178843 Problem Vitamin D deficiency (E55.9) Active confirmed 82159377 Problem Lumbar degenerative disc disease (M51.36) Active confirmed [id number] Problem custodial (current) use of non-steroidal anti-inflammatories (nsaid) (Z79.1) Active confirmed [id number] Encounters Encounter Location Date Provider Diagnosis [facility] [address] [place], [place] [phone] 06/27/2024 Mile Polanco PLAN OF TREATMENT Pending Test Test Name Order Date -Order Given 11/25/2022 PT Evaluate and treat 11/25/2022 Insurance Providers Payer Name Payer Address Payer Phone Subscriber Number Group Number Insured Name Patient Relationship to Insured Coverage Start Date Coverage End Date [facility] [employer] [address] [address] [place] [address] [id number] Charles Mccabe Self - patient is the insured 3 MEDICAL (GENERAL) HISTORY Medical History History ICD Code hypertension Kidney stones Surgical History Surgery Date(Month/Year) Right knee arthroscopy Kidney stones
[2025-02-26 07:13] VITALS: BMI 29.7
[2025-02-26 07:15] VITALS: BP 149/101; PULSE 76; RESP 20; TEMP 36.8; O2SAT 98
[2025-02-26] MEDS: LACTATED RINGERS 1,000 ML 30 ML IV CONT (07:37)
--- NOTE | 2025-02-26 07:53 | WPDANESEPPF ---
Anes - Initial Pre Proc Eval Procedure: Operation Date: 02/26/25 08:15 Proposed Procedures p Thermal Radiofrequency Ablation Bilateral L3, L4, L5 Medial Branch/Dorsal Ramus Addressing Bilateral L4-5, L5-S1 Facet Joints under Fluoroscopic Guidance with Contrast Control - Pietro Rivers MD Date/Time: 02/26/25 07:53 Surgeon: Pietro Rivers MD Pre Op Diagnosis: Lumbosacral Spondylosis w/o Myelopathy or Radicul Patient Data Age: 60 Gender: M Height: 1.83 m Weight: 99.7 kg Last Vital Signs Temp 98.3 F 02/26/25 07:15 Pulse 76 02/26/25 07:15 Resp 20 02/26/25 07:15 BP 149/101 H 02/26/25 07:15 Pulse Ox 98 02/26/25 07:15 O2 Del Method Room Air 02/26/25 07:15 Allergies Allergy/AdvReac Type Severity Reaction Status Date / Time No Known Allergies Allergy Verified 02/26/25 06:58 Home Medications ?Medication ?Instructions ?Recorded ?Confirmed ?Type ferrous sulfate 325 mg (65 mg 325 mg PO DAILY 10/14/23 02/26/25 History iron) tablet multivitamin 1 tablet PO DAILY 12/02/23 02/26/25 History acetaminophen 325 mg tablet 650 mg PO HS 04/20/24 02/26/25 History losartan 50 mg-hydrochlorothiazide 1 tablet PO DAILY #90 tabs 07/31/24 02/26/25 Rx 12.5 mg tablet metoprolol succinate 25 mg 25 mg PO DAILY #90 tabs 07/31/24 02/26/25 Rx tablet,extended release 24 hr nabumetone 750 mg tablet 750 mg PO BID #180 tabs 07/31/24 02/26/25 Rx tamsulosin 0.4 mg capsule 0.4 mg PO HS #90 caps 07/31/24 02/26/25 Rx ropinirole 0.5 mg tablet 0.5 mg PO QHS PRN restless legs 12/26/24 02/26/25 Rx #30 tabs hydrocodone 5 mg-acetaminophen 325 1 tablet PO Q6H PRN pain #60 tabs 02/13/25 02/26/25 Rx mg tablet omeprazole 40 mg capsule,delayed 40 mg PO DAILY #90 caps 02/19/25 02/26/25 Rx release Patient hx anesthesia problems: none Family hx anesthesia problems: none Results Review: All pre-operative results and documents have been reviewed as part of the pre-operative evaluation. [facility] Past Medical History Medical History GERD (gastroesophageal reflux disease) Anxiety Arthritis Arthrosis of first carpometacarpal joint Obesity Renal stones GREGG (obstructive sleep apnea) no CPAP Hypertension Surgical History Surgical History H/O hernia repair Family History Family History Mother Diabetes mellitus Hypertension Depression Anxiety Other Family history of multiple sclerosis Social History Social History Smoking status: Never smoker Second hand tobacco smoke exposure: Yes Alcohol intake: current Alcohol use details: occasional Substance use: current Substance use type: marijuana Other substance usage details: couple times per week Do You Feel Safe in your Home?: Yes Lack of Transportation: No Lack of Food: Never True Current Housing: I Have Housing Concerned About Future Housing: No Difficulty Paying Gas/Electric Bills: No Difficulty Paying for Meds: No Currently Unemployed: No Education: Trade/Vocational Certificate Difficulty w/ Childcare or Family Care: No Living arrangements: with family Occupation/Education: occupation Gender identity (if verbalized by the patient): Male Sexual Orientation (if Verbalized by the Patient): Straight or Heterosexual Spiritual care concerns: No Agree to blood products: Yes Anes - Eval Final PreProcedure Day of Procedure 02/26/25 07:53 Heart: regular rate and rhythm Lungs: clear to auscultation Airway: Mallampati scale class IV Neurological: alert and oriented Last oral intake: >/= 8 hours ASA classification: III Anesthetic plan: proceed Anesthesia type and monitoring: monitored anesthesia care Results Review: All pre-operative results and documents have been reviewed as part of the pre-operative evaluation. Informed Consent: The patient's anesthetic plan and its attendant risks and benefits were discussed with the patient/family/POA. Questions were solicited and answers provided to the satisfaction of the patient/family/POA.
[2025-02-26] MEDS: BUPivacaine HCL 0.5% 10 ML AMP INFILTRATE (08:34)
[2025-02-26] MEDS: LIDOCAINE 2% PF LOCAL INJ 5 ML VIAL INFILTRATE (08:45)
[2025-02-26] MEDS: LIDOCAINE 1% PF INJ 5 ML VIAL 1 ML INFILTRATE (08:45)
[2025-02-26 08:52] VITALS: BP 132/99; PULSE 75; RESP 18; O2SAT 100
[2025-02-26 09:02] VITALS: BP 135/95; PULSE 81; RESP 18; O2SAT 92
[2025-02-26 09:12] VITALS: BP 147/100; PULSE 78; RESP 18; O2SAT 93
== END 2025-02-26 09:26 | disposition home or self-care (01) ==
PROVIDERS: PCP Family Medicine; Visit Provider Anesthesiology Pain Medicine
PROC: (CPT 64635; principal; 2025-02-26 08:15)
DX: M47.817 Spondylosis without myelopathy or radiculopathy, lumbosacral region (principal)
CPT/HCPCS: 64635; 64636 ×6; 99199